=== PATIENT | female | born 1950 | race Caucasian/White ===

== ENCOUNTER 2017-09-25 20:14 | Inpatient (IN) | payer MEDICARE ==
[2017-09-25] MEDS ORDERED: Azithromycin 500 MG VIAL ONE ×2 (20:42→20:45)
[2017-09-25] MEDS ORDERED: cefTRIAXone\\ROCEPHIN 2 GM in Sodium Chloride 0.9% 100 ML IVPB SCH (20:45)
[2017-09-25 20:58] LABS: INR-International Normal Ratio 1.1; PTT 31.2 SEC (22.9-36.1); Prothrombin Time 13.8 SEC (12.0-14.7)
--- NOTE | 2017-09-25 21:05 | RAD ---
PORTABLE AP CHEST X-RAY 09/25/17 HISTORY: Diminished breath sounds on the left on physical exam. COMPARISON: 10/20/15. FINDINGS: The patient is rotated to the left which accentuates the hilar structures as well as the cardiac silh ouette. Lungs are clear. Pulmonary vasculature is within normal limits. Given differences in patient rotation, chest is stable from prior exam. IMPRESSION: Stable chest without evidence of an acute cardiopulmonary process. POS: DAMON
[2017-09-25 21:12] LABS: ALT (SGPT) 54 U/L (8-55); AST (SGOT) 44 U/L (5-34); Albumin 3.9 g/dL (3.4-4.8); Alkaline Phosphatase 152 U/L (40-150); Anion Gap 13 mmol/L (10-20); BUN (Urea Nitrogen) 16 mg/dL (9.8-20.1); Bilirubin, Total 0.7 mg/dL (0.2-1.2); Calc. Creatinine Clearance 0 mL/min (70-130); Calcium 9.4 mg/dL (7.8-10.44); Carbon Dioxide 31 mmol/L (23-31); Chloride 98 mmol/L (98-107); Estimated GFR-MDRD 42; Glucose 185 mg/dL (80-115); Potassium 4.7 mmol/L (3.5-5.1); Protein, Total 8.9 g/dL (6.0-8.3); Sodium 137 mmol/L (136-145)
[2017-09-25 21:17] LABS: CKMB 5.1 ng/mL (0-6.6); Troponin I Less than 0.010 ng/mL (< 0.028)
[2017-09-25 21:22] LABS: Band 10 % (5-11); Lymphocytes 14 % (21-51); MDiff Complete? YES; Mean Corpuscular HGB CONC 31.4 g/dL (32.0-36.0); Mean Corpuscular Hemoglobin 28.6 pg (27.0-31.0); Mean Corpuscular Volume 90.8 fl (81.0-99.0); Mean Platelet Volume 8.2 fL (7.4-10.4); Metamyelocyte 1 % (0-0); Monocytes 6 % (0-10); Neutrophil 69 % (42-75); PLT Morphology Comment Appears Adequate; Platelet Count 369 thou/uL (130-400); RBC Distribution Width 14.2 % (11.5-14.5); RBC Morphology Normal; Red Blood Cell (RBC) Count 4.57 mill/uL (4.20-5.40); White Blood Cell (WBC) Count 18.7 thou/uL (4.8-10.8)
[2017-09-25 22:03] LABS: Bilirubin Negative (Negative); Blood, Urine Trace (Negative); Clarity CLOUDY (Clear); Glucose, Urine (Dipstick) Negative (Negative); Leukocyte Small (Negative); Nitrite Negative (Negative); Protein, Urine (Dipstick) 30 mg/dL (Neg-Trace); Specific Gravity, Urine 1.013 (1.002-1.036); pH, Urine 6.5 (5.0-9.0)
[2017-09-25 22:05] LABS: Bacteria/HPF 3+ HPF (None Seen); Hyaline Casts/LPF 0-3 HYALINE CAST LPF (0-3 Hyaline); Squamous Epithelial 0-3 HPF (0-3); WBC/HPF 21-50 HPF (0-3)
[2017-09-26] VITALS: BMI 35.0
[2017-09-26] MEDS: Sodium Chloride 0.9% 1,000 ML IV SCH ×2 (00:35→16:45)
[2017-09-26] MEDS ORDERED: Ondansetron ODT 4 MG TAB PO PRN (01:03)
[2017-09-26] MEDS ORDERED: Calcium Carbonate 500 MG ChewTAB PO PRN (01:03)
[2017-09-26] MEDS ORDERED: Ondansetron HCl/PF 4 MG/2 ML Vial IVP PRN (01:03)
[2017-09-26] MEDS ORDERED: Senokot 8.6 MG TAB PO PRN (01:03)
[2017-09-26] MEDS ORDERED: Acetaminophen 325 MG TAB PO PRN (01:03)
[2017-09-26] MEDS ORDERED: hydrALAZINE 20 MG/ML VIAL SLOW IVP PRN (01:06)
--- NOTE | 2017-09-26 01:11 | PDOC.EVN ---
Event Note - Event Note Event Note: Patient seen and examined on 09/25. Full code. DPOA - self/family
--- NOTE | 2017-09-26 01:33 | HP ---
DATE OF ADMISSION: 09/25/2017 The patient was seen and examined on 09/25/2017. CHIEF COMPLAINT: Shortness of breath. PRIMARY CARE DOCTOR: Dr. Matos. PRIMARY INVOICE CODER: Dr. Kaur. HISTORY OF PRESENT ILLNESS: Patient is a 66-year-old female with COPD presented to the emergency room with worsening shortness of breath of approximately one-week duration along with productive cough. The cough was productive of thick-whitish phlegm. The patient has oxygen and nebulizer at home, however, uses only on an as needed basis. She denies any sick contacts. No recent travel reported. Shortness of breath was worse on mild exertion. She denies any chest pain, palpitations, lightheadedness, dizziness. In the emergency room, initial vital signs showed temperature 99.6 with respirations 20, pulse rate 120, blood pressure 135/61 with O2 saturation 83% on room air. Her O2 saturation improved to 99% on 4 liter nasal cannula. She received ceftriaxone, azithromycin, DuoNebs with IV fluids in the emergency room. Her chest x-ray was negative for infiltrate. EKG showed sinus tachycardia without significant ST-T wave changes. PAST MEDICAL HISTORY: 1. COPD. 2. Chronic respiratory failure on home oxygen on an as needed basis. 3. Hypothyroidism. 4. Hyperlipidemia. 5. Hypertension. 6. Degenerative joint disease. PAST SURGICAL HISTORY: Reviewed with the patient and none. ALLERGIES: PENICILLIN. CURRENT HOME MEDICATIONS: Patient is on Symbicort, Spiriva, levothyroxine, albuterol inhaler. She is unable to recall the dosages and exact names of all of her medications. SOCIAL HISTORY: Patient currently lives at home. Denies any current use of smoking, alcohol, or drug use. She is a former smoker. FAMILY HISTORY: Mother with breast cancer. Diabetes runs in her family. Maternal grandfather with prostate cancer. Maternal grandmother with leukemia. REVIEW OF SYSTEMS: The following complete review of systems was negative, unless otherwise mentioned in the HPI or below: Constitutional: Weight loss or gain, ability to conduct usual activities. Skin: Rash, itching. Eyes: Double vision, pain. ENT/Mouth: Nose bleeding, neck stiffness, pain, tenderness. Cardiovascular: Palpitations, dyspnea on exertion, orthopnea. Respiratory: Shortness of breath, wheezing, cough, hemoptysis, fever or night sweats. Gastrointestinal: Poor appetite, abdominal pain, heartburn, nausea, vomiting, constipation, or diarrhea. Genitourinary: Urgency, frequency, dysuria, nocturia. Musculoskeletal: Pain, swelling. Neurologic/Psychiatric: Anxiety, depression. Allergy/Immunologic: Skin rash, bleeding tendency. PHYSICAL EXAMINATION: VITAL SIGNS: As discussed above. GENERAL: A 66-year-old female in mild respiratory distress. HEENT: Head, atraumatic, normocephalic. Sclerae are anicteric. Moist mucous membranes. No oral lesion. NECK: Supple, no JVD appreciated. No carotid bruit. LUNGS: Showed diffuse expiratory wheezing with scattered bibasilar rales. Lungs were symmetrical. No significant rhonchi noted. HEART: S1, S2 present. Regular rate and rhythm. No rubs or gallops. No heaves or pulsation. ABDOMEN: Soft, nontender, bowel sounds present. EXTREMITIES: No edema or calf tenderness. NEUROLOGIC: Grossly nonfocal, moves all four extremities. PSYCHIATRY: Alert, awake, oriented x3. SKIN: Warm and dry. LYMPH NODES: No palpable lymph nodes in the neck. PERIPHERAL VASCULAR: Radial pulses palpable bilaterally. MUSCULOSKELETAL: No joint swelling or tenderness. SKIN: Warm and dry. LYMPH NODES: No palpable lymph nodes in the neck. LABORATORY FINDINGS: CBC showed WBC 18.7 with hemoglobin 13, platelet count 369. PT, INR, PTT normal range. Chemistries showed sodium 137, potassium 4.7, BUN 16, creatinine 1.27. Baseline creatinine 0.73. Lactic acid was normal at 1.2. Troponins were normal. BNP 14.1. Influenza testing was negative. Chest x-ray and EKG by my review as discussed above. Blood cultures have been sent. IMPRESSION: 1. Acute hypoxic respiratory failure secondary to chronic obstructive pulmonary disease exacerbation. 2. Sepsis due to suspected pneumonia, questionable pneumococcal with UTI. 3. Chronic respiratory failure on p.r.n. home oxygen. 4. Obesity with a BMI at 35. 5. Mild acute kidney injury on chronic kidney disease, stage 2. 6. Hypertension. 7. Hyperlipidemia. 8. Former smoker. 9. Degenerative joint disease. 10. Hypothyroidism. PLAN: Patient will be monitored on the medical floor. We will continue nebulizer treatments every 4 hours and as needed. We will continue gentle IV hydration for the next 24 hours or so. We will add on urine cultures. Continue ceftriaxone and azithromycin. We will confirm other home medications and start accordingly. Continue Symbicort and Spiriva. IV steroids. Vital signs q.4 hourly. O2 supplementation. Patient will require 2-3 days for stabilization. MTDD
[2017-09-26 05:14] LABS: #Eosinphils 0.1 thou/uL (0.0-0.7); #Monocytes 0.2 thou/uL (0.11-0.59); #Neutrophils 14.9 thou/uL (1.40-6.50); %Eosinophils 0.4 % (0.0-10.0); %Monocytes 1.2 % (0.0-10.0); %Neutrophils 92.4 % (42.0-75.0); Mean Corpuscular Hemoglobin 28.7 pg (27.0-31.0); Mean Corpuscular Volume 92.8 fl (81.0-99.0); Mean Platelet Volume 6.5 fL (7.4-10.4); Platelet Count 316 thou/uL (130-400); Red Blood Cell (RBC) Count 4.17 mill/uL (4.20-5.40); White Blood Cell (WBC) Count 16.1 thou/uL (4.8-10.8)
[2017-09-26 05:30] LABS: ALT (SGPT) 50 U/L (8-55); AST (SGOT) 35 U/L (5-34); Albumin 3.5 g/dL (3.4-4.8); Alkaline Phosphatase 138 U/L (40-150); Anion Gap 8 mmol/L (10-20); BUN (Urea Nitrogen) 14 mg/dL (9.8-20.1); Bilirubin, Total 0.3 mg/dL (0.2-1.2); Calc. Creatinine Clearance 98 mL/min (70-130); Calcium 9.1 mg/dL (7.8-10.44); Carbon Dioxide 34 mmol/L (23-31); Chloride 102 mmol/L (98-107); Estimated GFR-MDRD 71; Globulin 4.2 g/dL (2.4-3.5); Glucose 201 mg/dL (80-115); Magnesium 2.3 mg/dL (1.6-2.6); Potassium 4.4 mmol/L (3.5-5.1); Protein, Total 7.7 g/dL (6.0-8.3); Sodium 140 mmol/L (136-145)
[2017-09-26] MEDS ORDERED: Levothyroxine Sodium 100 MCG TAB PO SCH (06:00)
[2017-09-26] MEDS ORDERED: Budesonide 0.5 MG/2 ML NEB INH SCH (06:30)
[2017-09-26] MEDS ORDERED: Spiriva 18 MCG CAP (Box of 5 Caps) INH SCH (07:00)
[2017-09-26] MEDS ORDERED: FLU VACC TS2017-18 (>65YR) 0.5 ML SYRINGE IM ONE (09:00)
[2017-09-26] MEDS ORDERED: guaiFENesin ER 600 MG TAB PO SCH (09:00)
[2017-09-26] MEDS ORDERED: Prevnar 13-Val Conj/PF 0.5 ML SYRINGE IM ONE (09:00)
[2017-09-26] MEDS ORDERED: Non-Formulary Item 1 EACH (Budesonide-Formoterol [Symbicort 160-4.5] 2 PUFF) INH SCH (09:00)
[2017-09-26] MEDS: guaiFENesin ER 600 MG TAB PO SCH ×2 (09:26→21:19)
[2017-09-26] MEDS: Famotidine 20 MG TAB PO SCH ×2 (09:26→21:20)
[2017-09-26] MEDS: Aspirin 81 mg Enteric Coated Tablet PO SCH (09:26)
[2017-09-26] MEDS: Docusate 100 MG CAP PO SCH ×2 (09:26→21:20)
[2017-09-26] MEDS: cefTRIAXone\\ROCEPHIN 1 GM in Syringe 10 ML SLOW IVP SCH (09:27)
--- NOTE | 2017-09-26 15:32 | PDOC.PN ---
- Subjective Encounter Start Date: 09/26/17 Encounter Start Time: 15:30 Subjective: feels much better. breathing still shallow and easily winded -: cough same - Objective Resuscitation Status: Resuscitation Status FULL:Full Resuscitation MAR Reviewed: Yes Vital Signs & Weight: Vital Signs (12 hours) Temp Pulse Resp BP Pulse Ox 09/26/17 15:08 92 24 H 09/26/17 12:00 98.6 F 110 H 22 H 132/63 94 L 09/26/17 10:59 92 28 H 09/26/17 08:04 98 09/26/17 08:00 100 20 98 09/26/17 07:30 98.0 F 110 H 20 132/91 H 94 L 09/26/17 04:00 98.2 F 116 H 16 135/61 91 L Weight Weight 204 lb I&O: 09/25/17 09/26/17 09/27/17 06:59 06:59 06:59 Intake Total 725 Balance 725 Result Diagrams: 09/26/17 04:45 09/26/17 04:45 Additional Labs: Microbiology 09/25/17 21:57 Nasal swab Influenza Types A,B Direct EIA - Final 09/25/17 21:50 Urine clean catch Urine Culture - Preliminary Escherichia coli 09/25/17 20:39 Venous blood - Left Arm Blood Culture - Preliminary Specimen has been received and culture in progress. No Growth to date. 09/25/17 20:37 Venous blood - Right Foot Blood Culture - Preliminary Specimen has been received and culture in progress. No Growth to date. Phys Exam - Physical Examination Constitutional: NAD HEENT: PERRLA, moist MMs, sclera anicteric, oral pharynx no lesions Neck: no nodes, no JVD, supple, full ROM Respiratory: no rales, no rhonchi, wheezing present, clear to auscultation bilateral Cardiovascular: RRR, no significant murmur, no rub, gallop Gastrointestinal: soft, non-tender, no distention, positive bowel sounds Musculoskeletal: no edema, pulses present Neurological: non-focal, normal sensation, moves all 4 limbs Psychiatric: normal affect, A&O x 3 Skin: no rash Dx/Plan (1) Acute hypoxemic respiratory failure Code(s): J96.01 - ACUTE RESPIRATORY FAILURE WITH HYPOXIA Status: Acute (2) Sepsis Code(s): A41.9 - SEPSIS, UNSPECIFIED ORGANISM Status: Acute (3) PNA (pneumonia) Code(s): J18.9 - PNEUMONIA, UNSPECIFIED ORGANISM Status: Acute (4) UTI (urinary tract infection) Status: Acute (5) Hypothyroid Code(s): E03.9 - HYPOTHYROIDISM, UNSPECIFIED Status: Acute (6) Chronic obstructive pulmonary disease (COPD) Status: Chronic - Plan continue antibiotics, respiratory therapy, incentive spirometry, out of bed/ ambulate, DVT proph w/SCDs cont IV steroids,nebsm empiric ABX -: follow Cx . -: HH ,OT,PT. -: WBC trending down .monitor. AM labs. -: renal Fx improved * . Review of Systems - Review of Systems Constitutional: negative: fever, chills, sweats, weakness, malaise, other ENT: negative: Ear Pain, Ear Discharge, Nose Pain, Nose Discharge, Nose Congestion, Mouth Pain, Mouth Swelling, Throat Pain, Throat Swelling, Other Respiratory: negative: Cough, Dry, Shortness of Breath, Hemoptysis, SOB with Excertion, Pleuritic Pain, Sputum, Wheezing Cardiovascular: negative: chest pain, palpitations, orthopnea, paroxysmal nocturnal dyspnea, edema, light headedness, other Gastrointestinal: negative: Nausea, Vomiting, Abdominal Pain, Diarrhea, Constipation, Melena, Hematochezia, Other Genitourinary: negative: Dysuria, Frequency, Incontinence, Hematuria, Retention , Other Musculoskeletal: negative: Neck Pain, Shoulder Pain, Arm Pain, Back Pain, Hand Pain, Leg Pain, Foot Pain, Other Neurological: negative: Weakness, Numbness, Incoordination, Change in Speech, Confusion, Seizures, Other - Medications/Allergies Allergies/Adverse Reactions: Allergies Allergy/AdvReac Type Severity Reaction Status Date / Time Penicillins Allergy Verified 09/26/17 00:37 Medications: Current Medications Acetaminophen (Tylenol) 650 mg PO Q4H PRN PRN Reason: Headache/Fever or Pain Albuterol/Ipratropium (Duoneb) 3 ml NEB Q2H PRN PRN Reason: SOB &/or Wheezing Albuterol/Ipratropium (Duoneb) 3 ml NEB [id number] [facility] Last Admin: 09/26/17 15:08 Dose: 3 ml Aspirin (Ecotrin) 81 mg PO QAM [facility] Last Admin: 09/26/17 09:26 Dose: 81 mg Atorvastatin Calcium (Lipitor) 10 mg PO HS [facility] Calcium Carbonate (Tums) 1,000 mg PO Q4H PRN PRN Reason: Heartburn or Indigestion Docusate Sodium (Colace) 100 mg PO BID [facility] Last Admin: 09/26/17 09:26 Dose: 100 mg Enoxaparin Sodium (Lovenox) 40 mg SC 2100 [facility] Famotidine (Pepcid) 20 mg PO BID [facility] Last Admin: 09/26/17 09:26 Dose: 20 mg Guaifenesin (Mucinex) 600 mg PO Q12HR [facility] Last Admin: 09/26/17 09:26 Dose: 600 mg Hydralazine HCl (Apresoline) 10 mg SLOW IVP Q4H PRN PRN Reason: SBP Greater Than 180 Sodium Chloride (Normal Saline 0.9%) 1,000 mls @ 50 mls/hr IV .Q20H [facility] Stop: 09/26/17 20:31 Last Admin: 09/26/17 00:35 Dose: 1,000 mls Ceftriaxone Sodium 1 gm/ (Syringe) 10 mls @ 120 mls/hr SLOW IVP DAILY [facility] Last Admin: 09/26/17 09:27 Dose: 10 mls Levothyroxine Sodium (Synthroid) 100 mcg PO QPM [facility] Methylprednisolone Sodium Succinate (Solu-Medrol) 40 mg IVP 0200,1000,1800 [facility] Last Admin: 09/26/17 11:30 Dose: 40 mg Mometasone Furoate/Formoterol Fumar (Dulera 200 Mcg/5 Mcg Inhaler) 2 puff INH BID-RT [facility] Ondansetron HCl (Zofran Odt) 4 mg PO Q6H PRN PRN Reason: Nausea/Vomiting Ondansetron HCl (Zofran) 4 mg IVP Q6H PRN PRN Reason: Nausea/Vomiting Senna (Senokot) 2 tab PO HSPRN PRN PRN Reason: Constipation
[2017-09-26] MEDS ORDERED: traMADol HCl 50 MG TAB PO PRN (18:06)
[2017-09-26] MEDS: Mometasone/Formoterol 120 PUFF INHALER INH SCH (19:15)
[2017-09-26] MEDS ORDERED: Enoxaparin Sodium 40 MG/0.4 ML SYRINGE SC SCH (21:00)
[2017-09-26] MEDS: Levothyroxine Sodium 100 MCG TAB PO SCH (21:20)
[2017-09-26] MEDS: Atorvastatin Calcium 10 MG TAB PO SCH (21:20)
[2017-09-26] MEDS: traMADol HCl 50 MG TAB PO PRN (21:22)
[2017-09-27] MEDS: traMADol HCl 50 MG TAB PO PRN (05:46)
[2017-09-27] MEDS: Mometasone/Formoterol 120 PUFF INHALER INH SCH ×2 (06:05→19:14)
[2017-09-27] MEDS: Docusate 100 MG CAP PO SCH ×2 (08:26→21:09)
[2017-09-27] MEDS: guaiFENesin ER 600 MG TAB PO SCH ×2 (08:27→21:06)
[2017-09-27] MEDS: Famotidine 20 MG TAB PO SCH ×2 (08:27→21:07)
[2017-09-27] MEDS: Aspirin 81 mg Enteric Coated Tablet PO SCH (08:27)
[2017-09-27] MEDS: cefTRIAXone\\ROCEPHIN 1 GM in Syringe 10 ML SLOW IVP SCH (09:26)
--- NOTE | 2017-09-27 17:36 | PDOC.PN ---
- Subjective Encounter Start Date: 09/27/17 Encounter Start Time: 14:00 Patient seen and examined. Dry cough +, Wheezing + No overnight events. - Objective Resuscitation Status: Resuscitation Status FULL:Full Resuscitation MAR Reviewed: Yes Vital Signs & Weight: Vital Signs (12 hours) Temp Pulse Resp BP BP Pulse Ox 09/27/17 16:00 98.0 F 100 18 140/80 94 L 09/27/17 12:00 98.2 F 106 H 18 141/68 H 93 L 09/27/17 09:51 89 20 94 L 09/27/17 08:00 98.2 F 89 20 93 L 09/27/17 07:25 98.2 F 106 H 18 141/68 H 93 L 09/27/17 06:02 103 H 24 H 94 L Weight Weight 204 lb I&O: 09/26/17 09/27/17 09/28/17 06:59 06:59 06:59 Intake Total 725 Output Total 600 Balance 725 -600 Result Diagrams: 09/26/17 04:45 09/26/17 04:45 Phys Exam - Physical Examination Constitutional: NAD Respiratory: no rales, wheezing present Cardiovascular: RRR, no rub Gastrointestinal: soft, non-tender, positive bowel sounds Musculoskeletal: no edema Neurological: moves all 4 limbs Dx/Plan - Plan DVT proph w/lovenox, DVT proph w/SCDs IMPRESSION: 1. Acute hypoxic respiratory failure secondary to chronic obstructive pulmonary disease exacerbation. slowly improving 2. Sepsis due to suspected pneumonia, questionable pneumococcal with E. coli UTI. 3. Chronic respiratory failure on p.r.n. home oxygen. 4. Obesity with a BMI at 35. 5. Mild acute kidney injury on chronic kidney disease, stage 2 - improving 6. Hypertension. 7. Hyperlipidemia. 8. Former smoker. 9. Degenerative joint disease. 10. Hypothyroidism. PLAN: * Cont Atbx/Nebs/Steroids * Consult Dr Kaur in AM * Cont current meds as below * Cont Mucinex * Add Doxycycline * Cont to monitor Review of Systems - Review of Systems Constitutional: negative: fever, chills, sweats, weakness, malaise Cardiovascular: negative: chest pain, palpitations, orthopnea, paroxysmal nocturnal dyspnea, edema, light headedness Gastrointestinal: negative: Nausea, Vomiting, Abdominal Pain, Diarrhea, Constipation, Melena, Hematochezia - Medications/Allergies Allergies/Adverse Reactions: Allergies Allergy/AdvReac Type Severity Reaction Status Date / Time Penicillins Allergy Verified 09/26/17 00:37 Medications: Current Medications Acetaminophen (Tylenol) 650 mg PO Q4H PRN PRN Reason: Headache/Fever or Pain Last Admin: 09/26/17 16:43 Dose: 650 mg Albuterol/Ipratropium (Duoneb) 3 ml NEB Q2H PRN PRN Reason: SOB &/or Wheezing Albuterol/Ipratropium (Duoneb) 3 ml NEB [id number] [facility] Last Admin: 09/27/17 14:47 Dose: 3 ml Aspirin (Ecotrin) 81 mg PO QAM [facility] Last Admin: 09/27/17 08:27 Dose: 81 mg Atorvastatin Calcium (Lipitor) 10 mg PO HS [facility] Last Admin: 09/26/17 21:20 Dose: 10 mg Calcium Carbonate (Tums) 1,000 mg PO Q4H PRN PRN Reason: Heartburn or Indigestion Docusate Sodium (Colace) 100 mg PO BID [facility] Last Admin: 09/27/17 08:26 Dose: 100 mg Famotidine (Pepcid) 20 mg PO BID [facility] Last Admin: 09/27/17 08:27 Dose: 20 mg Guaifenesin (Mucinex) 600 mg PO Q12HR [facility] Last Admin: 09/27/17 08:27 Dose: 600 mg Hydralazine HCl (Apresoline) 10 mg SLOW IVP Q4H PRN PRN Reason: SBP Greater Than 180 Ceftriaxone Sodium 1 gm/ (Syringe) 10 mls @ 120 mls/hr SLOW IVP DAILY [facility] Last Admin: 09/27/17 09:26 Dose: 10 mls Levothyroxine Sodium (Synthroid) 100 mcg PO QPM [facility] Last Admin: 09/26/17 21:20 Dose: 100 mcg Methylprednisolone Sodium Succinate (Solu-Medrol) 40 mg IVP 0200,1000,1800 [facility] Last Admin: 09/27/17 17:24 Dose: 40 mg Mometasone Furoate/Formoterol Fumar (Dulera 200 Mcg/5 Mcg Inhaler) 2 puff INH BID-RT [facility] Last Admin: 09/27/17 06:05 Dose: 2 puff Ondansetron HCl (Zofran Odt) 4 mg PO Q6H PRN PRN Reason: Nausea/Vomiting Ondansetron HCl (Zofran) 4 mg IVP Q6H PRN PRN Reason: Nausea/Vomiting Senna (Senokot) 2 tab PO HSPRN PRN PRN Reason: Constipation Tramadol HCl (Ultram) 50 mg PO Q6H PRN PRN Reason: Moderate Pain (4-6) Tramadol HCl (Ultram) 100 mg PO Q6H PRN PRN Reason: Severe Pain (7-10) Last Admin: 09/27/17 05:46 Dose: 100 mg
[2017-09-27] MEDS: Doxycycline 100 MG CAP PO SCH (21:05)
[2017-09-27] MEDS: Levothyroxine Sodium 100 MCG TAB PO SCH (21:07)
[2017-09-27] MEDS: Atorvastatin Calcium 10 MG TAB PO SCH (21:07)
[2017-09-28] MEDS: traMADol HCl 50 MG TAB PO PRN ×2 (04:35→18:19)
[2017-09-28] MEDS: Mometasone/Formoterol 120 PUFF INHALER INH SCH (06:36)
[2017-09-28] MEDS: Aspirin 81 mg Enteric Coated Tablet PO SCH (08:12)
[2017-09-28] MEDS: Docusate 100 MG CAP PO SCH ×2 (08:13→21:15)
[2017-09-28] MEDS: Famotidine 20 MG TAB PO SCH (08:13)
[2017-09-28] MEDS: guaiFENesin ER 600 MG TAB PO SCH ×2 (08:13→21:14)
[2017-09-28] MEDS: Doxycycline 100 MG CAP PO SCH ×2 (08:15→21:14)
[2017-09-28] MEDS: cefTRIAXone\\ROCEPHIN 1 GM in Syringe 10 ML SLOW IVP SCH (08:16)
[2017-09-28] MEDS ORDERED: Furosemide 20 MG/2 ML VIAL SLOW IVP SCH (13:30)
--- NOTE | 2017-09-28 13:46 | CON ---
DATE OF CONSULTATION: 09/28/2017 SERVICE: Pulmonary Medicine. REASON FOR CONSULTATION: COPD exacerbation. HISTORY OF PRESENT ILLNESS: The patient is a 66-year-old white female with past medical history sign ificant for moderately severe COPD based on PFTs that were done roughly a year ago. She denies any c urrent fevers, chills, nausea or vomiting. She presented to the hospital with a 1-week history of in creasing dyspnea on exertion, cough productive of increasingly green sputum, and dyspnea with exertio n. Ultimately, she was diagnosed as having COPD exacerbation. She put on antibiotics and nebulizer medications since Thursday. Today, she feels much improved. She started to liberate some of that sput um, but has a hard time clearing it sometimes. Otherwise, she is returning to her usual state of hea lt. She is looking forward to getting out of here, but think she is still 24 hours away from that. PAST MEDICAL HISTORY: 1. COPD, moderately severe. 2. Hypertension. 3. Dyslipidemia. 4. Chronic hypoxic respiratory failure. 5. Hypothyroidism. 6. Osteoarthritis. PAST SURGICAL HISTORY: None. ALLERGIES: PENICILLIN. MEDICATIONS: List of her inpatient medications were reviewed. Multiple updates were made. SOCIAL HISTORY: Negative for alcohol, tobacco or illicit drug use. She is a former smoker and has a greater than [id number] history of smoking. She has no exposure to chemicals, dust asbestos or tu berculosis. FAMILY HISTORY: Noncontributory. REVIEW OF SYSTEMS: General, head, ears, eyes, nose, throat, cardiovascular, respiratory, GI, , mus culoskeletal, neurologic and skin is negative except as mentioned in the HPI. PHYSICAL EXAMINATION: VITAL SIGNS: Afebrile, pulse 93, blood pressure 153/79, respirations 20, saturation 94% on 2 liters nasal cannula. GENERAL: The patient is awake and alert, in no apparent distress. LUNGS: Excellent air entry. There is a prolonged expiratory phase. Polyphonic wheezing is present. There is rhonchi and crackles also evident. HEART: Normal rate, regular. ABDOMEN: Soft, nontender, nondistended. Bowel sounds are positive. MUSCULOSKELETAL: No cyanosis or clubbing. There is 1+ pitting in the bilateral lower extremities. NEUROLOGIC: Grossly nonfocal. LABORATORY DATA: WBC 16.1, hemoglobin 12.0, platelets 316,000. INR is 1.1. Cardiac enzymes and BNP are unremarkable. Liver function studies are also unremarkable/down trending. Creatinine is 0.[address] a nd back into the normal limits. Basic metabolic profile is otherwise unremarkable. Urinalysis is po sitive for 21 to 50 white blood cells, very small amount of red blood cells, positive leukocyte chadwick ase, and negative nitrites. Cultures are positive for E. coli in the urine. Blood cultures x2 and i nfluenza are unremarkable. IMAGING: Chest x-ray demonstrates a little bit rotation on this film, but there is no acute cardiopu lmonary abnormality identified. ASSESSMENT: 1. Acute on chronic hypoxic respiratory failure. 2. Chronic obstructive pulmonary disease with acute exacerbation. 3. Obstructive sleep apnea, suspected. PLAN: I will deescalate her antibiotics and steroids over to p.o. medications. From my perspective, she is stable for transition out of the hospital today or tomorrow. When she is discharged, she cale l need to resume her home inhalers. We will consider getting her on Trelegy Ellipta in the outpatien t setting to consolidate some of her medications. Pulmonary will continue to follow while she remain s in-house. I will give her dose of Lasix today and tomorrow morning. IV fluids will be interrupted . We will schedule her Mucinex and get rid of any cough suppressant.
--- NOTE | 2017-09-28 15:36 | PDOC.PN ---
- Subjective Encounter Start Date: 09/28/17 Encounter Start Time: 09:30 Patient seen and examined. Lightheaded charla on standing. Feels gen weak. No overnight events - Objective Resuscitation Status: Resuscitation Status FULL:Full Resuscitation MAR Reviewed: Yes Vital Signs & Weight: Vital Signs (12 hours) Temp Pulse Resp BP BP Pulse Ox 09/28/17 14:18 89 18 94 L 09/28/17 12:00 97.5 F L 93 20 153/79 H 94 L 09/28/17 10:18 91 18 93 L 09/28/17 08:15 97.6 F 105 H 18 157/73 H 93 L 09/28/17 08:00 97.6 F 105 H 18 93 L 09/28/17 06:35 99 18 94 L 09/28/17 04:15 93 L Weight Weight 204 lb I&O: 09/27/17 09/28/17 09/29/17 06:59 06:59 06:59 Intake Total 1650 Output Total 600 Balance -600 1650 Result Diagrams: 09/26/17 04:45 09/26/17 04:45 Phys Exam - Physical Examination Constitutional: NAD Respiratory: no rales, wheezing present Cardiovascular: RRR, no rub Gastrointestinal: soft, non-tender, positive bowel sounds Musculoskeletal: no edema Neurological: moves all 4 limbs Psychiatric: A&O x 3 Dx/Plan - Plan DVT proph w/SCDs IMPRESSION: 1. Acute hypoxic respiratory failure secondary to chronic obstructive pulmonary disease exacerbation. slowly improving 2. Sepsis due to suspected pneumonia, questionable pneumococcal with E. coli UTI. 3. Chronic respiratory failure on p.r.n. home oxygen. 4. Obesity with a BMI at 35. 5. Mild acute kidney injury on chronic kidney disease, stage 2 - improving 6. Hypertension. 7. Hyperlipidemia. 8. Former smoker. 9. Degenerative joint disease. 10. Hypothyroidism. PLAN: * Appreciated Pulm input * Cont Atbx/Nebs/Steroids/Mucinex * Cont current meds as below * Cont Doxycycline * Cont to monitor * DC in 24 hr if stable * Check Orthostatic vitals Review of Systems - Review of Systems Respiratory: negative: Cough, Dry, Shortness of Breath, Hemoptysis, SOB with Excertion, Pleuritic Pain, Sputum, Wheezing Cardiovascular: negative: chest pain, palpitations, orthopnea, paroxysmal nocturnal dyspnea, edema, light headedness - Medications/Allergies Allergies/Adverse Reactions: Allergies Allergy/AdvReac Type Severity Reaction Status Date / Time Penicillins Allergy Verified 09/26/17 00:37 Medications: Current Medications Acetaminophen (Tylenol) 650 mg PO Q4H PRN PRN Reason: Headache/Fever or Pain Last Admin: 09/26/17 16:43 Dose: 650 mg Albuterol/Ipratropium (Duoneb) 3 ml NEB Q2H PRN PRN Reason: SOB &/or Wheezing Albuterol/Ipratropium (Duoneb) 3 ml NEB [id number] [facility] Last Admin: 09/28/17 14:18 Dose: 3 ml Aspirin (Ecotrin) 81 mg PO QAM [facility] Last Admin: 09/28/17 08:12 Dose: 81 mg Atorvastatin Calcium (Lipitor) 10 mg PO HS [facility] Last Admin: 09/27/17 21:07 Dose: 10 mg Calcium Carbonate (Tums) 1,000 mg PO Q4H PRN PRN Reason: Heartburn or Indigestion Cefdinir (Omnicef) 300 mg PO BID [facility] Stop: 10/01/17 21:01 Docusate Sodium (Colace) 100 mg PO BID [facility] Last Admin: 09/28/17 08:13 Dose: 100 mg Doxycycline Hyclate (Vibramycin) 100 mg PO BID [facility] Last Admin: 09/28/17 08:15 Dose: 100 mg Furosemide (Lasix) 20 mg SLOW IVP NOW [facility] Stop: 09/28/17 16:00 Last Admin: 09/28/17 13:47 Dose: 20 mg Furosemide (Lasix) 40 mg PO DAILY-AC [facility] Stop: 09/29/17 07:31 Guaifenesin (Mucinex) 600 mg PO Q12HR [facility] Last Admin: 09/28/17 08:13 Dose: 600 mg Hydralazine HCl (Apresoline) 10 mg SLOW IVP Q4H PRN PRN Reason: SBP Greater Than 180 Levothyroxine Sodium (Synthroid) 100 mcg PO QPM [facility] Last Admin: 09/27/17 21:07 Dose: 100 mcg Ondansetron HCl (Zofran Odt) 4 mg PO Q6H PRN PRN Reason: Nausea/Vomiting Ondansetron HCl (Zofran) 4 mg IVP Q6H PRN PRN Reason: Nausea/Vomiting Prednisone (Prednisone) 40 mg PO QAM-[facility] Stop: 10/03/17 08:01 Senna (Senokot) 2 tab PO HSPRN PRN PRN Reason: Constipation Tramadol HCl (Ultram) 50 mg PO Q6H PRN PRN Reason: Moderate Pain (4-6) Tramadol HCl (Ultram) 100 mg PO Q6H PRN PRN Reason: Severe Pain (7-10) Last Admin: 09/28/17 04:35 Dose: 100 mg
[2017-09-28] MEDS: Levothyroxine Sodium 100 MCG TAB PO SCH (21:14)
[2017-09-28] MEDS: Atorvastatin Calcium 10 MG TAB PO SCH (21:15)
[2017-09-28] MEDS: Cefdinir 300 MG CAP PO SCH (21:15)
[2017-09-29] MEDS: traMADol HCl 50 MG TAB PO PRN ×3 (00:08→13:31)
[2017-09-29] MEDS ORDERED: Furosemide 40 MG TAB PO SCH (07:30)
[2017-09-29] MEDS ORDERED: predniSONE 20 MG TAB PO SCH (08:00)
[2017-09-29] MEDS: Cefdinir 300 MG CAP PO SCH (09:37)
[2017-09-29] MEDS: guaiFENesin ER 600 MG TAB PO SCH (09:37)
[2017-09-29] MEDS: Doxycycline 100 MG CAP PO SCH (09:37)
[2017-09-29] MEDS: Aspirin 81 mg Enteric Coated Tablet PO SCH (09:38)
[2017-09-29] MEDS: Docusate 100 MG CAP PO SCH (11:23)
[2017-09-29 13:21] VITALS: BP 118/64; TEMP 97.4
--- NOTE | 2017-09-29 19:12 | DIS ---
DATE OF DISCHARGE: 09/29/2017 DISCHARGE DISPOSITION: [facility]. ALLERGIES: The patient is allergic to PENICILLIN. The patient was seen and examined on the day of discharge. Denies any new complaints. Shortness of breath and wheezing has improved. DISCHARGE MEDICATIONS: 1. Omnicef 300 mg twice a day for 5 days. 2. Doxycycline 100 mg twice a day for next 5 days. 3. Prednisone taper. 4. Nebulizer treatment. 5. Other home medications were resumed. SIGNIFICANT LABORATORY DATA: 1. WBC on admission 18.7 with hemoglobin 13.0 2. Creatinine on admission 1.27, next day was 0.81. 3. Urinalysis showed 21-50 wbc's with 3+ bacteria. 4. Urine culture showed E. coli sensitive to cephalosporins. 5. Blood cultures were negative. 6. Influenza testing was negative. INPATIENT CONSULTANTS: Dr. Vincent Espinosa. BRIEF HOSPITAL COURSE: The patient is a 66-year-old female with COPD, on home oxygen on an as needed basis, presented to the hospital with shortness of breath. Please refer to the history and physical dated 09/25/2017 for further details. The patient was admitted to the hospital with a diagnosis of acute hypoxic respiratory failure second eric to chronic obstructive pulmonary disease exacerbation with suspected pneumonia. She showed good improvement with oxygen, nebulizer treatment, antibiotics, and steroids. She was also found to have E. coli urinary tract infection. She was seen by Pulmonary, Dr. Kaur. [facility] She will be discharged to [facility]. DISCHARGE DIAGNOSES: 1. Acute hypoxic respiratory failure secondary to chronic obstructive pulmonary disease exacerbation . 2. Sepsis secondary to pneumonia, questionable pneumococcal. 3. Urinary tract infection secondary to Escherichia coli. 4. Chronic respiratory failure, on home oxygen. 5. Obesity with a BMI at 35. 6. Mild acute kidney injury on chronic kidney disease stage 2, improved. 7. Hypertension. 8. Hyperlipidemia. 9. Former smoker. 10. Degenerative joint disease. 11. Hypothyroidism. Plan of care was discussed with the patient in detail. She stated understanding. Total time coordinating the discharge of this patient was 35 minutes.
== END 2017-09-29 16:09 | DRG 871 ==
LOC: ERS 20:14 → ONC 23:24
PROVIDERS: ADMIT Internal Medicine; ATTEND Internal Medicine
DX: A41.9 Sepsis, unspecified organism (principal); J96.01 Acute respiratory failure with hypoxia; J18.9 Pneumonia, unspecified organism; J44.0 Chronic obstructive pulmonary disease with (acute) lower respiratory infection; J44.1 Chronic obstructive pulmonary disease with (acute) exacerbation; N39.0 Urinary tract infection, site not specified; B96.20 Unspecified Escherichia coli [E. coli] as the cause of diseases classified elsewhere; Z99.81 Dependence on supplemental oxygen; E66.9 Obesity, unspecified; Z68.35 Body mass index [BMI] 35.0-35.9, adult; I10 Essential (primary) hypertension; E78.5 Hyperlipidemia, unspecified; M19.90 Unspecified osteoarthritis, unspecified site; E03.9 Hypothyroidism, unspecified; G47.33 Obstructive sleep apnea (adult) (pediatric)
CPT/HCPCS: 36415; 71045; 80053; 81003; 81015; 82553; 83605; 83735; 83880; 84484; 85025; 85610; 85730; 87040; 87077; 87086; 87186; 87804; 90471; 90682; 93005; 94640; 94664; 96365; G0008; G8978-GP-CJ; G8979-GP-CJ; G8980-GP-CJ; J0456; J0696; J1650; J1940; J2920; J7050; J7506; J7620; Q2036

== ENCOUNTER 2017-10-23 18:14 | Inpatient (IN) | payer MEDICARE ==
[2017-10-23 19:03] LABS: Actual Bicarbonate (HCO3a) 33.5 mEq/L (22-26); Base Excess (BEa) 5.5 mEq/L (0 (+/-) 2.5); CO2 Tension 67.8 mmHg (35.0-45.0); Hematocrit-ABG 39.8 % (36.0-47.0); Hemoglobin (Hb) 11.7 g/dL (12.0-16.0); O2 Tension (PaO2) 103.7 mmHg (80.0-100.0); pH, Arterial 7.31 (7.35-7.45)
[2017-10-23 19:04] LABS: Analyzer IN Cardio ER; Calcium, Ionized 1.1 mmol/L (1.12-1.30); Puncture Site RRA
[2017-10-23 19:25] LABS: Troponin I 0.014 ng/mL (< 0.028)
[2017-10-23] MEDS ORDERED: Acetaminophen 325 MG TAB PO PRN (19:52)
[2017-10-23] MEDS ORDERED: Ondansetron HCl/PF 4 MG/2 ML Vial IVP PRN (19:52)
[2017-10-23] MEDS ORDERED: Ondansetron ODT 4 MG TAB SL PRN (19:52)
[2017-10-23] MEDS ORDERED: Acetaminophen 650 MG Suppository PR PRN (21:44)
[2017-10-23] MEDS ORDERED: Bisacodyl 5 MG TAB PO PRN (21:44)
--- NOTE | 2017-10-23 22:42 | HP ---
PRIMARY CARE PROVIDER: Dr. Nataly Matos. CHIEF COMPLAINT: Shortness of breath. HISTORY OF PRESENT ILLNESS: Ms. Simon is a pleasant 67-year-old lady, who was seen at [facility] on 10/23/2017, following transfer from the emergency room at [facility]. She was hospitalized at [facility] from 09/26/2017 to 09/29/2017 of this year for acute on chronic hypoxic respiratory failure secondary to chronic obstructive pulmonary disease e xacerbation. She reports that she was doing well until 3 days ago. She uses home oxygen on an as needed basis. T hree days ago, she developed cough and shortness of breath. Cough is productive of minimal amount of sputum. Shortness of breath is worse with exertion. She denies orthopnea or paroxysmal nocturnal d yspnea. She denies any fevers or chest pain. She denies any nausea or vomiting. She denies any abd ominal pain. She went to the emergency room at [facility]. There, she was found to have oxygen saturation of 68% on room air. She also had a temperature of 100.8 degrees Fahrenheit. She was treated with steroids, L evaquin, oxygen, and DuoNebs, and transferred to the emergency room at [facility]. She also reports wheezing with shortness of breath. REVIEW OF SYSTEMS: The following complete review of systems was negative, unless otherwise mentioned in the HPI or below: Constitutional: Weight loss or gain, ability to conduct usual activities. Skin: Rash, itching. Eyes: Double vision, pain. ENT/Mouth: Nose bleeding, neck stiffness, pain, tenderness. Cardiovascular: Palpitations, dyspnea on exertion, orthopnea. Respiratory: Shortness of breath, wheezing, cough, hemoptysis, fever or night sweats. Gastrointestinal: Poor appetite, abdominal pain, heartburn, nausea, vomiting, constipation, or diarrh ea. Genitourinary: Urgency, frequency, dysuria, nocturia. Musculoskeletal: Pain, swelling. Neurologic/Psychiatric: Anxiety, depression. Allergy/Immunologic: Skin rash, bleeding tendency. PAST MEDICAL HISTORY: Significant for COPD, chronic respiratory failure on home oxygen on an as need ed basis, hypothyroidism, dyslipidemia, hypertension, and degenerative joint disease. PAST SURGICAL HISTORY: None. ALLERGIES: PENICILLIN. HOME MEDICATIONS: Ventolin HFA p.r.n., aspirin 81 mg daily, Symbicort 2 puffs 2 times a day, levothy roxine 100 mcg daily, pravastatin 40 mg daily, and Spiriva 2 puffs daily. SOCIAL HISTORY: She denies tobacco use, alcohol use, or recreational drug use. FAMILY HISTORY: Mother with breast cancer, several family members with diabetes mellitus, maternal g randfather with prostate cancer, and maternal grandmother with leukemia. CODE STATUS: I discussed her code status. She is FULL CODE. Substitute decision maker is her nakul ter-in-law. PHYSICAL EXAMINATION: GENERAL: Ms. Simon is awake and alert, not in acute distress. She is currently on a BiPAP christina e. VITAL SIGNS: Blood pressure is 115/61, pulse is 107. She is breathing at rate of 23 and saturating 99% on BiPAP. She is afebrile. EYES: No scleral icterus. No conjunctival pallor. ENT: Moist mucosal membranes, no oropharyngeal erythema or exudates. NECK: Supple, nontender, normal range of movement. Trachea is midline. RESPIRATORY: Accessory muscles of breathing are active. Chest wall movements are symmetric bilatera lly. She has diffuse expiratory wheezes over all lung zones. CARDIOVASCULAR: S1 and S2 are heard, tachycardic, and regular. LUNGS: Peripheral pulses palpable. No carotid bruit, no pericardial rub. ABDOMEN: Soft, nontender, bowel sounds are heard, no hepatomegaly, no splenomegaly. NEUROLOGIC: Cranial nerves II-XII intact. Deep tendon reflexes are 2+. MUSCULOSKELETAL: Power is 5/5 in all 4 extremities. SKIN: She has a wound over the left leg. She also has bilateral lower extremity edema. LYMPHATIC: No cervical lymphadenopathy. PSYCHIATRIC: Normal mood, normal affect, patient is oriented to person, place, and time. LABORATORY DATA: Ms. Simon's labs and investigations were reviewed. I reviewed her electrocardio gram, which shows sinus tachycardia, no ST changes to suggest an acute coronary syndrome. I also rev iewed her chest x-ray, which does not show any pulmonary infiltrates. She has normal white count, no rmal hemoglobin, normal platelet count, normal sodium, normal potassium, normal creatinine, mildly el evated AST of 35, otherwise unremarkable liver profile and arterial blood gases showing pH of 7.31, p CO2 of 67.8, and pO2 of 103.7. ASSESSMENT AND PLAN: Ms. Simon is a pleasant 67-year-old lady, who was seen at [facility] on 10/23/2017. Her problem list includes: 1. Acute on chronic respiratory failure: Hypercapnic: The patient is currently in the IMCU on BiPA P therapy. I will admit her to IMCU and continue her on oxygen, steroids, bronchodilators, and antib iotics. Pulmonology Service will be consulted for opinion and help with management. Respiratory medardo lure is most likely secondary to chronic obstructive pulmonary disease exacerbation. 2. Hypothyroidism: Appears to be stable. Resume home dose of Synthroid. 3. Dyslipidemia: Continue statin. 4. Hypertension: Monitor vital signs, titrate antihypertensives as needed. Many thanks for allowing me to participate in your patient's care. Please feel free to contact me wi th any questions or concerns. LEVEL OF RISK: LEVEL OF RISK: High. LEVEL OF COMPLEXITY: High.
[2017-10-23 23:03] LABS: Troponin I Less than 0.010 ng/mL (< 0.028)
[2017-10-24 00:12] VITALS: BMI 35.9
[2017-10-24 04:46] LABS: Anion Gap 12 mmol/L (10-20); BUN (Urea Nitrogen) 11 mg/dL (9.8-20.1); Calc. Creatinine Clearance 122 mL/min (70-130); Calcium 8.9 mg/dL (7.8-10.44); Carbon Dioxide 31 mmol/L (23-31); Chloride 100 mmol/L (98-107); Estimated GFR-MDRD 89; Glucose 150 mg/dL (80-115); Potassium 5.3 mmol/L (3.5-5.1); Sodium 138 mmol/L (136-145)
[2017-10-24 05:01] LABS: Band 5 % (5-11); Hemoglobin 12.4 g/dL (12.0-16.0); Hypochromia SLIGHT = 6-15 cells (100X) (0-5/hpf); Lymphocytes 14 % (21-51); MDiff Complete? YES; Mean Corpuscular HGB CONC 31.6 g/dL (32.0-36.0); Mean Corpuscular Hemoglobin 29.1 pg (27.0-31.0); Mean Platelet Volume 6.7 fL (7.4-10.4); Metamyelocyte 1 % (0-0); Monocytes 2 % (0-10); Neutrophil 78 % (42-75); Nucleated RBC 1 % (0); PLT Morphology Comment Appears Adequate; Platelet Count 201 thou/uL (130-400); RBC Distribution Width 14.6 % (11.5-14.5); Red Blood Cell (RBC) Count 4.26 mill/uL (4.20-5.40); White Blood Cell (WBC) Count 4.6 thou/uL (4.8-10.8)
[2017-10-24] MEDS ORDERED: Prevnar 13-Val Conj/PF 0.5 ML SYRINGE IM ONE (09:00)
[2017-10-24] MEDS: Enoxaparin Sodium 40 MG/0.4 ML SYRINGE SC SCH (10:11)
--- NOTE | 2017-10-24 11:31 | PDOC.PN ---
- Subjective Encounter Start Date: 10/24/17 Encounter Start Time: 11:29 Subjective: on BIPAP, still feels air hunger - Objective Resuscitation Status: Resuscitation Status FULL:Full Resuscitation MAR Reviewed: Yes Vital Signs & Weight: Vital Signs (12 hours) Temp Pulse Resp BP Pulse Ox 10/24/17 11:22 103 H 17 99 10/24/17 10:53 98.9 F 104 H 19 134/64 99 10/24/17 08:00 98.2 F 103 H 18 98 10/24/17 07:12 98.2 F 103 H 18 124/57 L 97 10/24/17 07:00 96 10/24/17 06:58 102 H 17 96 10/24/17 06:57 103 H 16 92 L 10/24/17 04:00 97.5 F L 96 22 H 113/55 L 92 L 10/24/17 00:02 98 18 99 10/24/17 00:01 96 18 99 10/24/17 00:00 95 22 H 122/35 L 91 L Weight Weight 208 lb 4.8 oz I&O: 10/23/17 10/24/17 10/25/17 06:59 06:59 06:59 Intake Total 240 Output Total 400 100 Balance -160 -100 Result Diagrams: 10/24/17 04:14 10/24/17 04:14 Phys Exam - Physical Examination Neck: no JVD coarse BS with rhonchi, no focal findings Cardiovascular: RRR, no significant murmur Gastrointestinal: soft, non-tender, positive bowel sounds Musculoskeletal: edema present Dx/Plan (1) Acute on chronic respiratory failure with hypoxia and hypercapnia Code(s): J96.21 - ACUTE AND CHRONIC RESPIRATORY FAILURE WITH HYPOXIA; J96.22 - ACUTE AND CHRONIC RESPIRATORY FAILURE WITH HYPERCAPNIA Status: Acute (2) COPD exacerbation Code(s): J44.1 - CHRONIC OBSTRUCTIVE PULMONARY DISEASE W (ACUTE) EXACERBATION Status: Acute (3) Hypothyroid Code(s): E03.9 - HYPOTHYROIDISM, UNSPECIFIED Status: Chronic Qualifiers: Hypothyroidism type: unspecified Qualified Code(s): E03.9 - Hypothyroidism , unspecified (4) Hypertension Code(s): I10 - ESSENTIAL (PRIMARY) HYPERTENSION Status: Chronic Qualifiers: Hypertension type: essential hypertension Qualified Code(s): I10 - Essential (primary) hypertension - Plan cont nebs, steroids,antibx -: start dulera -: check ABG * .
[2017-10-24 12:10] LABS: CO2 Tension 80.6 mmHg (35.0-45.0); pH, Arterial 7.32 (7.35-7.45)
[2017-10-24 12:11] LABS: Actual Bicarbonate (HCO3a) 40.1 mEq/L (22-26); Analyzer IN Cardio ER; Base Excess (BEa) 11.1 mEq/L (0 (+/-) 2.5); Calcium, Ionized 1.1 mmol/L (1.12-1.30); Hemoglobin (Hb) 11.7 g/dL (12.0-16.0); O2 Tension (PaO2) 69.6 mmHg (80.0-100.0)
[2017-10-24 12:12] LABS: Puncture Site LBA
[2017-10-24] MEDS: Acetaminophen 325 MG TAB PO PRN (12:23)
--- NOTE | 2017-10-24 13:36 | CON ---
DATE OF CONSULTATION: 10/24/2017 CONSULTING PHYSICIAN: Hospitalist group. REASON FOR CONSULTATION: Acute respiratory failure related COPD. HISTORY OF PRESENT ILLNESS: Ms. Simon is a pleasant 67-year-old female who presented to the [facility] ency room last night with increasing shortness of breath. She was hospitalized here last month with similar symptomatology. She had to be placed on BiPAP last night. She was febrile. She is doing be tter today. REVIEW OF SYSTEMS: Twelve point review of systems otherwise negative. PAST MEDICAL HISTORY: 1. COPD with chronic hypoxic respiratory failure. 2. Hypothyroidism. 3. Hyperlipidemia. 4. Hypertension. 5. Osteoarthritis. PAST SURGICAL HISTORY: None. ALLERGIES: PENICILLIN. MEDICATIONS: 1. Prior to admission, Ventolin HFA as needed. 2. Aspirin 81 mg daily. 3. Symbicort 2 puffs twice daily. 4. Levothyroxine 100 mcg daily. 5. Pravastatin 40 mg daily. 6. Spiriva Respimat 2 puffs daily. SOCIAL HISTORY: Quit smoking 8-10 years ago. Does not consume alcohol, does not use illicit drugs. FAMILY MEDICAL HISTORY: Remarkable for breast cancer, diabetes mellitus, prostate cancer and leukemi a. PHYSICAL EXAMINATION: VITAL SIGNS: Temperature 98.9, pulse 103, respirations 17, O2 sat 99%, blood pressure 134/64. HEENT: Unremarkable. NECK: Without adenopathy or JVD. LUNGS: Tight end expiratory wheezing. CARDIOVASCULAR: S1, S2 regular, without murmur. ABDOMEN: Soft and nontender. EXTREMITIES: No clubbing, cyanosis or edema. She has multiple bruises on her arms. LABORATORY DATA: ABG - pH 7.31, pCO2 of 67, pO2 of 103, white blood cell count 4.6, hematocrit 39.2, platelet count 201. Sodium 138, potassium 5.3, chloride 100, CO2 of 31, BUN 11, creatinine 0.6, glu cose 150. Chest x-ray suggests the possibility of a small left pleural effusion. ASSESSMENT: 1. Chronic obstructive pulmonary disease with exacerbation. 2. Acute hypercapnic/hypoxic respiratory failure requiring mechanical ventilation. 3. Question of concurrent pneumonia. PLAN: 1. The patient needs to continue on IV antibiotics. 2. Recheck ABG. 3. Continue BiPAP - I have adjusted settings downward. 4. Continue steroids and nebs. 5. Discussed in detail with Dr. Gallagher. Seventy minutes time was spent performing the consultation; of that time, greater than 50% was spent with the patient and/or on the patient's floor.
--- NOTE | 2017-10-24 15:46 | PDOC.EVN ---
Event Note - Event Note Event Note: FU ABG demonstrates pH 7.32, high CO2. stable on BIPAP.
[2017-10-24] MEDS: Mometasone/Formoterol 120 PUFF INHALER INH SCH (18:54)
--- NOTE | 2017-10-25 09:46 | PRG ---
DATE OF SERVICE: 10/25/2017 SUBJECTIVE: The patient is doing better, although she is still wearing the BiPAP this morning. PHYSICAL EXAMINATION: VITAL SIGNS: Temperature 98.1, pulse 99, respirations 15, O2 sat 100%. HEENT: Unremarkable. NECK: No JVD. LUNGS: Bilateral expiratory wheezing. CARDIAC: S1 and S2 regular. ABDOMEN: Soft. EXTREMITIES: No edema. LABORATORY DATA: No labs were obtained today. ASSESSMENT: 1. Chronic obstructive pulmonary disease exacerbation. 2. Acute hypercapnic/hypoxic respiratory failure requiring mechanical ventilation. 3. Question of concurrent pneumonia. PLAN: I want her to gradually wean off the BiPAP today. We will continue nebulization treatments, s teroids, and antibiotics. Dr. Kaur will assume care tomorrow.
--- NOTE | 2017-10-25 10:28 | PDOC.PN ---
- Subjective Encounter Start Date: 10/25/17 Encounter Start Time: 10:26 Patient seen and examined, no new issues or complaints, all questions answered. - Objective Resuscitation Status: Resuscitation Status FULL:Full Resuscitation Vital Signs & Weight: Vital Signs (12 hours) Temp Pulse Resp BP Pulse Ox 10/25/17 07:33 100 10/25/17 07:32 15 98 10/25/17 07:30 99 22 H 100 10/25/17 07:16 98.1 F 104 H 20 149/72 H 97 10/25/17 04:28 95 16 98 10/25/17 04:27 16 98 10/25/17 03:54 97.1 F L 88 17 128/61 95 10/25/17 00:00 98.3 F 108 H 21 H 143/54 H 95 10/24/17 22:46 98 20 96 Weight Weight 203 lb 9.6 oz I&O: 10/24/17 10/25/17 10/26/17 06:59 06:59 06:59 Intake Total 240 300 Output Total 400 500 Balance -160 -200 Result Diagrams: 10/24/17 04:14 10/24/17 04:14 Phys Exam - Physical Examination Constitutional: NAD obese on bipap HEENT: PERRLA, moist MMs Neck: no nodes, no JVD Respiratory: no wheezing, no rales Cardiovascular: RRR, no significant murmur, no rub Gastrointestinal: soft, non-tender, no distention Musculoskeletal: pulses present, edema present (trace) Neurological: non-focal, normal sensation Dx/Plan (1) Acute on chronic respiratory failure with hypoxia and hypercapnia Code(s): J96.21 - ACUTE AND CHRONIC RESPIRATORY FAILURE WITH HYPOXIA; J96.22 - ACUTE AND CHRONIC RESPIRATORY FAILURE WITH HYPERCAPNIA Status: Acute (2) COPD exacerbation Code(s): J44.1 - CHRONIC OBSTRUCTIVE PULMONARY DISEASE W (ACUTE) EXACERBATION Status: Acute (3) PNA (pneumonia) Code(s): J18.9 - PNEUMONIA, UNSPECIFIED ORGANISM Status: Acute (4) Hypertension Code(s): I10 - ESSENTIAL (PRIMARY) HYPERTENSION Status: Chronic Qualifiers: Hypertension type: essential hypertension Qualified Code(s): I10 - Essential (primary) hypertension (5) Hypothyroid Code(s): E03.9 - HYPOTHYROIDISM, UNSPECIFIED Status: Chronic Qualifiers: Hypothyroidism type: unspecified Qualified Code(s): E03.9 - Hypothyroidism , unspecified - Plan * cont bipap for now, ICU team following, appreciate input * BP stable * patient symptomatically improving, bipap being weaned * continue current plan of care for now * case and plan d/w patient at length, she understands and agrees with this plan
[2017-10-25] MEDS: Mometasone/Formoterol 120 PUFF INHALER INH SCH ×2 (10:52→20:04)
[2017-10-25] MEDS: Enoxaparin Sodium 40 MG/0.4 ML SYRINGE SC SCH (11:06)
[2017-10-26 07:37] LABS: #Eosinphils 0.2 thou/uL (0.0-0.7); #Lymphocytes 1.4 thou/uL (1.20-3.40); #Monocytes 0.4 thou/uL (0.11-0.59); #Neutrophils 6.7 thou/uL (1.40-6.50); %Basophils 0.4 % (0.0-1.0); %Eosinophils 1.8 % (0.0-10.0); %Lymphocytes 16.4 % (21.0-51.0); %Monocytes 4.3 % (0.0-10.0); %Neutrophils 77.1 % (42.0-75.0); Hemoglobin 11.8 g/dL (12.0-16.0); Mean Corpuscular HGB CONC 30.6 g/dL (32.0-36.0); Mean Corpuscular Volume 91.3 fl (81.0-99.0); Mean Platelet Volume 6.2 fL (7.4-10.4); Platelet Count 263 thou/uL (130-400); RBC Distribution Width 14.2 % (11.5-14.5); Red Blood Cell (RBC) Count 4.23 mill/uL (4.20-5.40); White Blood Cell (WBC) Count 8.6 thou/uL (4.8-10.8)
[2017-10-26 07:58] LABS: ALT (SGPT) 114 U/L (8-55); AST (SGOT) 88 U/L (5-34); Albumin 3.6 g/dL (3.4-4.8); Alkaline Phosphatase 69 U/L (40-150); BUN (Urea Nitrogen) 18 mg/dL (9.8-20.1); Bilirubin, Total 0.2 mg/dL (0.2-1.2); Calc. Creatinine Clearance 112 mL/min (70-130); Calcium 8.9 mg/dL (7.8-10.44); Estimated GFR-MDRD 79; Globulin 3.4 g/dL (2.4-3.5); Glucose 165 mg/dL (80-115); Magnesium 2.6 mg/dL (1.6-2.6)
[2017-10-26 08:09] LABS: Anion Gap 16 mmol/L (10-20); Carbon Dioxide 38 mmol/L (23-31); Chloride 95 mmol/L (98-107); Potassium 4.5 mmol/L (3.5-5.1); Sodium 144 mmol/L (136-145)
[2017-10-26] MEDS: Enoxaparin Sodium 40 MG/0.4 ML SYRINGE SC SCH (08:24)
[2017-10-26] MEDS: Mometasone/Formoterol 120 PUFF INHALER INH SCH ×2 (10:32→18:23)
[2017-10-26] MEDS ORDERED: acetaZOLAMIDE Sodium 500 mg Vial IVP SCH (11:00)
--- NOTE | 2017-10-26 12:28 | PRG ---
DATE OF SERVICE: 10/26/2017 SERVICE: Pulmonary Medicine. INTERVAL HISTORY: Patient is doing poorly from a respiratory standpoint. That being said, she feels much improved compared to presentation. [facility] She was disch arged about a week prior to coming back to the emergency department. Over that week, she had a slow progressive increasing shortness of breath. She also noted increasing lower extremity swelling. Eit her way, she has returned to the hospital. Overnight, she required a little bit of BiPAP started get ting nauseated, late last evening. The BiPAP was subsequently discontinued. She has been doing fair ly well since. PHYSICAL EXAMINATION: VITAL SIGNS: Afebrile, pulse 112, blood pressure 146/96, respirations 17, saturation 92% on 4 liters nasal cannula. GENERAL: Patient is awake, alert, in no apparent distress. LUNGS: There are crackles present throughout bilateral lung torres. It is more predominantly displa yed in the bases. There is a prolonged expiratory phase with wheezing. Rhonchi are present, but diane ar with cough. HEART: Normal rate, regular. ABDOMEN: Soft, nontender, nondistended. Bowel sounds are positive. MUSCULOSKELETAL: No cyanosis or clubbing. There is a trace 1+ pitting in the bilateral lower extrem ities. NEUROLOGIC: Grossly nonfocal. LABORATORY DATA: WBC 8.6, hemoglobin 11.8, platelets 263,000. PH 7.32, pCO2 of 80.6, pO2 of 69. Cr eatinine 0.73. Basic metabolic profile is otherwise unremarkable except for a bicarbonate of 38. T and ALT are gently up trending. Troponin is negative x2. BNP is 12.9. Urine catheter is growing Klebsiella pneumonia, which is a pansensitive organism. Chest x-ray demonstrates no acute cardiopulm onary abnormality. ASSESSMENT: 1. Acute on chronic hypoxic and hypercapnic respiratory failure, requiring a brief mechanical ventil ation. 2. Chronic obstructive pulmonary disease with acute exacerbation. DISCUSSION AND PLAN: I will give her a dose of acetazolamide today. We may consider dose of Lasix s tarting tomorrow morning based on her pulmonary function status. She will remain in the IMCU for the time being. We will try to stay off the BiPAP in the next 24 hours and if were successfully doing t his, we can likely transition her out of the ICU once again. Pulmonary will continue to follow along .
--- NOTE | 2017-10-26 20:48 | PDOC.PN ---
- Subjective Encounter Start Date: 10/26/17 Encounter Start Time: 09:30 Patient seen and examined. No new complaints. No overnight events. Off NIPPV. Wheezing and dry cough + - Objective Resuscitation Status: Resuscitation Status FULL:Full Resuscitation MAR Reviewed: Yes Vital Signs & Weight: Vital Signs (12 hours) Temp Pulse Resp BP Pulse Ox 10/26/17 18:25 124 H 22 H 93 L 10/26/17 18:23 124 H 22 H 93 L 10/26/17 15:31 98.1 F 112 H 16 159/95 H 98 10/26/17 14:00 20 92 L 10/26/17 13:59 107 H 21 H 92 L 10/26/17 11:14 97 F L 106 H 22 H 184/95 H 100 10/26/17 10:32 108 H 20 96 Weight Weight 213 lb I&O: 10/25/17 10/26/17 10/27/17 06:59 06:59 06:59 Intake Total 300 200 Output Total 500 Balance -200 200 Result Diagrams: 10/27/17 04:20 10/28/17 04:06 EKG Reviewed by me: Yes (Tele SR) Phys Exam - Physical Examination Mild resp distress Respiratory: wheezing present Scat rhonchi Cardiovascular: RRR, no rub Gastrointestinal: soft, non-tender, positive bowel sounds Musculoskeletal: no edema Neurological: moves all 4 limbs Dx/Plan - Plan continue antibiotics, respiratory therapy, DVT proph w/lovenox, DVT proph w/SCDs IMPRESSION: 1. Acute hypoxic/hypercapnic respiratory failure secondary to chronic obstructive pulmonary disease exacerbation. slowly improving 2. Chronic respiratory failure on p.r.n. home oxygen. 3. Obesity with a BMI at 36.6 4. Hypertension. 5. Hyperlipidemia. 6. Former smoker/CKD 2/Hypothyroidism/Other issues per H&P PLAN: * Pulmonary following * Cont Atbx/Nebs/Steroids/Mucinex * Cont current meds as below * AM labs Review of Systems - Review of Systems Constitutional: negative: fever, chills, sweats, weakness, malaise, other Gastrointestinal: negative: Nausea, Vomiting, Abdominal Pain, Diarrhea, Constipation, Melena, Hematochezia, Other - Medications/Allergies Allergies/Adverse Reactions: Allergies Allergy/AdvReac Type Severity Reaction Status Date / Time Penicillins Allergy Verified 09/26/17 00:37 Medications: Current Medications Acetaminophen (Tylenol) 650 mg PO Q4H PRN PRN Reason: Headache/Fever or Pain Last Admin: 10/24/17 12:23 Dose: 650 mg Acetaminophen (Tylenol) 650 mg CO Q4H PRN PRN Reason: Headache/Fever or Pain Albuterol/Ipratropium (Duoneb) 3 ml NEB [id number] [facility] Last Admin: 10/26/17 18:25 Dose: 3 ml Bisacodyl (Dulcolax) 10 mg PO DAILYPRN PRN PRN Reason: Constipation Enoxaparin Sodium (Lovenox) 40 mg SC 0900 [facility] Last Admin: 10/26/17 08:24 Dose: 40 mg Levofloxacin 750 mg/ Device 150 mls @ 100 mls/hr IVPB 1700 [facility] Last Admin: 10/26/17 17:41 Dose: 150 mls Acetazolamide Sodium 500 mg/ (Sodium Chloride) 50 mls @ 100 mls/hr IVPB DAILY [facility] Stop: 10/27/17 09:29 Methylprednisolone Sodium Succinate (Solu-Medrol) 40 mg IVP DAILY [facility] Mometasone Furoate/Formoterol Fumar (Dulera 200 Mcg/5 Mcg Inhaler) 2 puff INH BID-RT [facility] Last Admin: 10/26/17 18:23 Dose: 2 puff Sodium Chloride (Flush - Normal Saline) 10 ml IVF Q12HR [facility] Last Admin: 10/26/17 08:24 Dose: 10 ml Sodium Chloride (Flush - Normal Saline) 10 ml IVF PRN PRN PRN Reason: Saline Flush Sterile Water (Water For Injection) 10 ml FS DAILY [facility]
[2017-10-27] MEDS: Acetaminophen 325 MG TAB PO PRN (02:32)
[2017-10-27 04:42] LABS: Hemoglobin 12.8 g/dL (12.0-16.0); Platelet Count 299 thou/uL (130-400)
[2017-10-27 05:01] LABS: Albumin 3.6 g/dL (3.4-4.8); Anion Gap 6 mmol/L (10-20); BUN (Urea Nitrogen) 20 mg/dL (9.8-20.1); Calc. Creatinine Clearance 112 mL/min (70-130); Calcium 8.8 mg/dL (7.8-10.44); Carbon Dioxide 37 mmol/L (23-31); Chloride 99 mmol/L (98-107); Estimated GFR-MDRD 79; Glucose 121 mg/dL (80-115); Magnesium 2.4 mg/dL (1.6-2.6); Phosphorus 2.7 mg/dL (2.3-4.7); Potassium 3.7 mmol/L (3.5-5.1); Sodium 138 mmol/L (136-145)
[2017-10-27] MEDS: Mometasone/Formoterol 120 PUFF INHALER INH SCH ×2 (08:02→19:29)
[2017-10-27] MEDS: Sterile Water 10 ML VIAL FS SCH (08:37)
[2017-10-27] MEDS: Enoxaparin Sodium 40 MG/0.4 ML SYRINGE SC SCH (08:37)
[2017-10-27] MEDS ORDERED: acetaZOLAMIDE Sodium 500 MG in Sodium Chloride 0.9% 50 ML IVPB SCH ×2 (09:00→09:45)
--- NOTE | 2017-10-27 09:34 | PRG ---
DATE OF SERVICE: 10/27/2017 SERVICE: Pulmonary Medicine INTERVAL HISTORY: The patient is doing fine from cardiovascular and respiratory standpoint. She den ies any current nausea, vomiting or diarrhea. She is breathing actually much more comfortably today. She is sleeping well. She did not require any BiPAP overnight. Otherwise, there were no events. PHYSICAL EXAMINATION: VITAL SIGNS: Afebrile, pulse 95, blood pressure 120/68, respirations 20, saturation 95% on 3 liters nasal cannula. GENERAL: The patient is awake, alert, in no apparent distress. LUNGS: Excellent air entry with no prolonged expiratory phase, wheezing, rhonchi or crackles. HEART: Normal rate, regular. ABDOMEN: Soft, nontender, nondistended. Bowel sounds are positive. MUSCULOSKELETAL: No cyanosis or clubbing. There is trace pitting in the bilateral lower extremities . NEUROLOGIC: Grossly nonfocal. LABORATORY DATA: Hemoglobin 12.8. Creatinine 0.73. Basic metabolic profile is otherwise unremarkab le. Bicarbonate has improved to 37, anion gap 6. ASSESSMENT: 1. Acute on chronic hypoxic and hypercapnic respiratory failure. 2. Chronic obstructive pulmonary disease with acute exacerbation. DISCUSSION AND PLAN: I will continue to gently diurese her as tolerated. Pulmonary Critical Care wi ll continue to follow along. She can move to the medical unit today. She has been off of BiPAP for greater than 24 hours. Pulmonary will continue to follow along.
--- NOTE | 2017-10-27 21:36 | PDOC.PN ---
- Subjective Encounter Start Date: 10/27/17 Encounter Start Time: 18:00 Patient seen and examined. No new complaints. No overnight events. Some cough. SOB improving. No fever or chills. - Objective Resuscitation Status: Resuscitation Status FULL:Full Resuscitation MAR Reviewed: Yes Vital Signs & Weight: Vital Signs (12 hours) Temp Pulse Resp BP Pulse Ox 10/27/17 20:00 98.8 F 115 H 22 H 167/88 H 94 L 10/27/17 19:15 107 H 20 96 10/27/17 18:10 98.8 F 115 H 18 167/88 H 94 L 10/27/17 15:23 98.2 F 105 H 20 153/95 H 94 L 10/27/17 14:41 124 H 22 H 94 L 10/27/17 11:44 98.0 F 113 H 18 140/78 94 L 10/27/17 10:56 106 H 20 95 Weight Weight 205 lb 12.8 oz I&O: 10/26/17 10/27/17 10/28/17 06:59 06:59 06:59 Intake Total 200 280 740 Output Total 350 Balance 200 -70 740 Result Diagrams: 10/27/17 04:20 10/28/17 04:06 EKG Reviewed by me: Yes (Tele SR earlier today) Phys Exam - Physical Examination Constitutional: NAD Respiratory: wheezing present (scat) Scat rhonchi Cardiovascular: RRR, no rub Gastrointestinal: soft, non-tender, positive bowel sounds Musculoskeletal: no edema Neurological: moves all 4 limbs Psychiatric: A&O x 3 Dx/Plan - Plan continue antibiotics, respiratory therapy, DVT proph w/lovenox, DVT proph w/SCDs IMPRESSION: 1. Acute hypoxic/hypercapnic respiratory failure secondary to chronic obstructive pulmonary disease exacerbation. improving. Off NIPPV 2. Chronic respiratory failure on p.r.n. home oxygen. 3. Obesity with a BMI at 36.6 4. Hypertension. 5. Hyperlipidemia. 6. Former smoker/CKD 2/Hypothyroidism/Other issues per H&P PLAN: * On Medical floor * Off NIPPV * Cont Atbx/Nebs/Steroids/Mucinex * Cont other meds as below * SNF Eval * Pulmonary following Review of Systems - Review of Systems Cardiovascular: negative: chest pain, palpitations, orthopnea, paroxysmal nocturnal dyspnea, edema, light headedness, other Gastrointestinal: negative: Nausea, Vomiting, Abdominal Pain, Diarrhea, Constipation, Melena, Hematochezia, Other - Medications/Allergies Allergies/Adverse Reactions: Allergies Allergy/AdvReac Type Severity Reaction Status Date / Time Penicillins Allergy Verified 09/26/17 00:37 Medications: Current Medications Acetaminophen (Tylenol) 650 mg PO Q4H PRN PRN Reason: Headache/Fever or Pain Last Admin: 10/27/17 02:32 Dose: 650 mg Acetaminophen (Tylenol) 650 mg [place] Q4H PRN PRN Reason: Headache/Fever or Pain Albuterol/Ipratropium (Duoneb) 3 ml NEB [id number] [facility] Last Admin: 10/27/17 19:15 Dose: 3 ml Bisacodyl (Dulcolax) 10 mg PO DAILYPRN PRN PRN Reason: Constipation Enoxaparin Sodium (Lovenox) 40 mg SC 0900 [facility] Last Admin: 10/27/17 08:37 Dose: 40 mg Guaifenesin (Mucinex) 600 mg PO Q12H [facility] Levofloxacin 750 mg/ Device 150 mls @ 100 mls/hr IVPB 1700 [facility] Last Admin: 10/27/17 18:20 Dose: Not Given Levothyroxine Sodium (Synthroid) 100 mcg PO 0600 [facility] Methylprednisolone Sodium Succinate (Solu-Medrol) 40 mg IVP DAILY [facility] Last Admin: 10/27/17 08:37 Dose: 40 mg Mometasone Furoate/Formoterol Fumar (Dulera 200 Mcg/5 Mcg Inhaler) 2 puff INH BID-RT [facility] Last Admin: 10/27/17 19:29 Dose: 2 puff Pravastatin Sodium (Pravachol) 40 mg PO QPM [facility] Sodium Chloride (Flush - Normal Saline) 10 ml IVF Q12HR [facility] Last Admin: 10/27/17 21:33 Dose: 10 ml Sodium Chloride (Flush - Normal Saline) 10 ml IVF PRN PRN PRN Reason: Saline Flush Sterile Water (Water For Injection) 10 ml FS DAILY [facility] Last Admin: 10/27/17 08:37 Dose: 10 ml
[2017-10-27] MEDS: guaiFENesin ER 600 MG TAB PO SCH (21:43)
[2017-10-28 04:49] LABS: Anion Gap 10 mmol/L (10-20); BUN (Urea Nitrogen) 20 mg/dL (9.8-20.1); Calc. Creatinine Clearance 112 mL/min (70-130); Calcium 8.8 mg/dL (7.8-10.44); Carbon Dioxide 32 mmol/L (23-31); Chloride 102 mmol/L (98-107); Estimated GFR-MDRD 82; Glucose 111 mg/dL (80-115); Potassium 3.9 mmol/L (3.5-5.1); Sodium 140 mmol/L (136-145)
[2017-10-28] MEDS: Levothyroxine Sodium 100 MCG TAB PO SCH (05:52)
[2017-10-28] MEDS: Acetaminophen 325 MG TAB PO PRN ×2 (05:52→16:57)
[2017-10-28] MEDS: Mometasone/Formoterol 120 PUFF INHALER INH SCH ×2 (07:12→19:07)
[2017-10-28] MEDS: Enoxaparin Sodium 40 MG/0.4 ML SYRINGE SC SCH (08:43)
[2017-10-28] MEDS: Sterile Water 10 ML VIAL FS SCH (08:44)
[2017-10-28] MEDS: guaiFENesin ER 600 MG TAB PO SCH ×2 (09:05→19:59)
--- NOTE | 2017-10-28 09:57 | PRG ---
DATE OF SERVICE: 10/28/2017 SERVICE: Pulmonary Medicine. INTERVAL HISTORY: The patient is doing really well from a respiratory standpoint. She indicates baldemar t her breathing is much more comfortable. She denies any chest pain, nausea, vomiting, fevers or chi lls. Otherwise, there has been no interval change to her condition. She still feels extraordinarily weak. She has no energy, she has complaints of myalgia and malaise. She is working with physical t herapy to get moving. She is a little discouraged by the fact that she is not back to baseline, kamryn use she feels like she is breathing better. PHYSICAL EXAMINATION: VITAL SIGNS: Afebrile, pulse 105, blood pressure 114/72, respirations 16, saturation 96% on 2 liters nasal cannula. GENERAL: The patient is awake and alert, in no apparent distress. LUNGS: Decent air entry bilaterally. There is a prolonged expiratory phase and wheezing present. N o rhonchi or crackles are appreciated today. HEART: Normal rate, regular. ABDOMEN: Soft, nontender, nondistended. Bowel sounds are positive. MUSCULOSKELETAL: No cyanosis or clubbing. No pitting in the bilateral lower extremities. NEUROLOGIC: Grossly nonfocal. LABORATORY DATA: Basic metabolic profile is essentially unremarkable with bicarbonate that is improv ed to 32. ASSESSMENT: 1. Acute on chronic hypoxic and hypercapnic respiratory failure. 2. Chronic obstructive pulmonary disease with acute exacerbation. DISCUSSION AND PLAN: We will continue to diurese her with p.o. Lasix on a once daily basis for the t selena being. We will continue to increase mobility as tolerated. In 24 hours, if she continues to do well and demonstrates improving strength, she can be considered for discharge from the hospital. She will need 5 days of antibiotics and steroids. She will continue her home inhalers on discharge from the hospital and we will consider modifying them in the outpatient setting.
[2017-10-28] MEDS ORDERED: Ascorbic Acid 500 mg Chewable Tablet PO SCH (10:15)
[2017-10-28] MEDS: Pravastatin Sodium 40 MG TAB PO SCH (19:59)
--- NOTE | 2017-10-28 21:04 | PDOC.PN ---
- Subjective Encounter Start Date: 10/28/17 Encounter Start Time: 14:00 Patient seen and examined. No new complaints. No overnight events - Objective Resuscitation Status: Resuscitation Status FULL:Full Resuscitation MAR Reviewed: Yes Vital Signs & Weight: Vital Signs (12 hours) Temp Pulse Pulse Resp BP Pulse Ox Pulse Ox 10/28/17 19:07 108 H 16 96 10/28/17 19:06 108 H 16 96 10/28/17 13:59 108 H 16 95 10/28/17 11:03 98.1 F 108 H 16 128/82 95 10/28/17 10:52 105 H 100 10/28/17 10:50 110 H 14 Weight Weight 205 lb 12.8 oz I&O: 10/27/17 10/28/17 10/29/17 06:59 06:59 06:59 Intake Total 875 542 7590 Output Total 350 Balance -70 740 1200 Result Diagrams: 10/27/17 04:20 10/28/17 04:06 Phys Exam - Physical Examination Constitutional: NAD Neck: no JVD Respiratory: no rales Scat wheezing and rhonchi Cardiovascular: RRR, no rub Gastrointestinal: soft, non-tender, positive bowel sounds Neurological: moves all 4 limbs Psychiatric: A&O x 3 Dx/Plan - Plan DVT proph w/SCDs IMPRESSION: 1. Acute hypoxic/hypercapnic respiratory failure secondary to chronic obstructive pulmonary disease exacerbation. improving. 2. Chronic respiratory failure on p.r.n. home oxygen. 3. Obesity with a BMI at 36.6 4. Hypertension. 5. Hyperlipidemia. 6. Former smoker/CKD 2/Hypothyroidism/Other issues per H&P PLAN: * Off NIPPV * Cont Atbx/Nebs/Steroids * Cont other meds as below * SNF Eval * Pulmonary following Review of Systems - Review of Systems Constitutional: negative: fever, chills, sweats, weakness, malaise, other Gastrointestinal: negative: Nausea, Vomiting, Abdominal Pain, Diarrhea, Constipation, Melena, Hematochezia, Other - Medications/Allergies Allergies/Adverse Reactions: Allergies Allergy/AdvReac Type Severity Reaction Status Date / Time Penicillins Allergy Verified 09/26/17 00:37 Medications: Current Medications Acetaminophen (Tylenol) 650 mg PO Q4H PRN PRN Reason: Headache/Fever or Pain Last Admin: 10/28/17 16:57 Dose: 650 mg Acetaminophen (Tylenol) 650 mg [place] Q4H PRN PRN Reason: Headache/Fever or Pain Albuterol/Ipratropium (Duoneb) 3 ml NEB [id number] [facility] Last Admin: 10/28/17 19:06 Dose: 3 ml Ascorbic Acid (Vitamin C) 1,000 mg PO DAILY [facility] Stop: 10/29/17 09:01 Bisacodyl (Dulcolax) 10 mg PO DAILYPRN PRN PRN Reason: Constipation Enoxaparin Sodium (Lovenox) 40 mg SC 0900 [facility] Last Admin: 10/28/17 08:43 Dose: 40 mg Guaifenesin (Mucinex) 600 mg PO Q12H [facility] Last Admin: 10/28/17 19:59 Dose: 600 mg Levofloxacin (Levaquin) 750 mg PO 0600 [facility] Stop: 10/31/17 06:01 Levothyroxine Sodium (Synthroid) 100 mcg PO 0600 [facility] Last Admin: 10/28/17 05:52 Dose: 100 mcg Mometasone Furoate/Formoterol Fumar (Dulera 200 Mcg/5 Mcg Inhaler) 2 puff INH BID-RT [facility] Last Admin: 10/28/17 19:07 Dose: 2 puff Pravastatin Sodium (Pravachol) 40 mg PO QPM [facility] Last Admin: 10/28/17 19:59 Dose: 40 mg Prednisone (Prednisone) 40 mg PO QAM-WM [facility] Stop: 10/31/17 08:01 Saccharomyces Boulardii (Florastor) 250 mg PO DAILY [facility] Sodium Chloride (Flush - Normal Saline) 10 ml IVF Q12HR [facility] Last Admin: 10/28/17 20:00 Dose: 10 ml Sodium Chloride (Flush - Normal Saline) 10 ml IVF PRN PRN PRN Reason: Saline Flush Sterile Water (Water For Injection) 10 ml FS DAILY [facility] Last Admin: 10/28/17 08:44 Dose: 10 ml
[2017-10-29] MEDS: Levothyroxine Sodium 100 MCG TAB PO SCH (06:08)
[2017-10-29] MEDS: Mometasone/Formoterol 120 PUFF INHALER INH SCH ×2 (06:36→18:33)
[2017-10-29] MEDS: predniSONE 20 MG TAB PO SCH (08:57)
[2017-10-29] MEDS: Saccharomyces boulardii 250 MG CAP PO SCH (08:57)
[2017-10-29] MEDS: Enoxaparin Sodium 40 MG/0.4 ML SYRINGE SC SCH (08:57)
[2017-10-29] MEDS: Sterile Water 10 ML VIAL FS SCH (08:58)
[2017-10-29] MEDS ORDERED: Ascorbic Acid 500 mg Chewable Tablet PO SCH (09:00)
[2017-10-29] MEDS: guaiFENesin ER 600 MG TAB PO SCH ×2 (09:01→20:37)
[2017-10-29] MEDS: Acetaminophen 325 MG TAB PO PRN ×2 (15:21→21:53)
--- NOTE | 2017-10-29 15:24 | PRG ---
DATE OF SERVICE: 10/29/2017 SERVICE: Pulmonary Medicine. INTERVAL HISTORY: The patient is doing better from a respiratory standpoint. That being said, with minimal activity, she desaturates significantly. She takes a second to catch backup. Otherwise, the re has been no interval change to her condition. PHYSICAL EXAMINATION: VITAL SIGNS: Afebrile, pulse 112, blood pressure 137/81, respirations 16, saturation 94% on 2 liters nasal cannula. GENERAL: The patient is awake and alert. No apparent distress. LUNGS: Improved air entry. There is extensive polyphonic wheezing throughout bilateral lung torres on exhalation. No rhonchi or crackles are appreciated today. HEART: Normal rate and regular. ABDOMEN: Soft, nontender, and nondistended. Bowel sounds are positive. MUSCULOSKELETAL: No cyanosis or clubbing. There is no pitting in the bilateral lower extremities. NEUROLOGIC: Grossly nonfocal. ASSESSMENT: 1. Acute on chronic hypoxic and hypercapnic respiratory failure. 2. Chronic obstructive pulmonary disease with acute exacerbation. PLAN: We will continue antibiotics, nebulized medications, and steroids. We will continue to diures e gently to euvolemia. Pulmonary or Critical Care will continue to follow along while she remains in house. We will need to evaluate her for a home ventilator on discharge from the hospital. I will p erform an echocardiogram to assess LV function.
--- NOTE | 2017-10-29 18:29 | PDOC.PN ---
- Subjective Encounter Start Date: 10/29/17 Encounter Start Time: 12:00 Patient seen and examined. SOB on mild exertion. Feels gen weak. No overnight events - Objective Resuscitation Status: Resuscitation Status FULL:Full Resuscitation MAR Reviewed: Yes Vital Signs & Weight: Vital Signs (12 hours) Temp Pulse Resp BP Pulse Ox 10/29/17 16:07 108 H 17 10/29/17 10:48 110 H 16 10/29/17 08:00 97.9 F 112 H 16 94 L 10/29/17 07:25 97.9 F 112 H 16 137/81 94 L 10/29/17 06:37 110 H 14 Weight Weight 205 lb 12.8 oz I&O: 10/28/17 10/29/17 10/30/17 06:59 06:59 06:59 Intake Total 740 1200 120 Balance 740 1200 120 Result Diagrams: 10/27/17 04:20 10/28/17 04:06 Phys Exam - Physical Examination Constitutional: NAD Respiratory: no rales, wheezing present Scat rhonchi Cardiovascular: RRR, no rub Gastrointestinal: soft, non-tender, positive bowel sounds Neurological: non-focal, moves all 4 limbs Psychiatric: A&O x 3 Dx/Plan - Plan plan discussed w/ family (daughter in law), continue antibiotics, PT/OT, respiratory therapy, DVT proph w/lovenox, DVT proph w/SCDs IMPRESSION: 1. Acute hypoxic/hypercapnic respiratory failure secondary to chronic obstructive pulmonary disease exacerbation. slowly improving. 2. Chronic respiratory failure on p.r.n. home oxygen. 3. Obesity with a BMI at 36.6 4. Hypertension. 5. Hyperlipidemia. 6. Former smoker/CKD 2/Hypothyroidism/Other issues per H&P PLAN: * Pulmonary following * Echo and Resp Viral panel ordered * Cont PT * Cont Atbx/Nebs/Steroids * Cont other meds as below * SNF Eval in progress Review of Systems - Review of Systems Respiratory: Cough, Dry, SOB with Excertion. negative: Shortness of Breath, Hemoptysis, Pleuritic Pain, Sputum, Wheezing Cardiovascular: negative: chest pain, palpitations, orthopnea, paroxysmal nocturnal dyspnea, edema, light headedness, other Gastrointestinal: negative: Nausea, Vomiting, Abdominal Pain, Diarrhea, Constipation, Melena, Hematochezia, Other - Medications/Allergies Allergies/Adverse Reactions: Allergies Allergy/AdvReac Type Severity Reaction Status Date / Time Penicillins Allergy Verified 09/26/17 00:37 Medications: Current Medications Acetaminophen (Tylenol) 650 mg PO Q4H PRN PRN Reason: Headache/Fever or Pain Last Admin: 10/29/17 15:21 Dose: 650 mg Acetaminophen (Tylenol) 650 mg [place] Q4H PRN PRN Reason: Headache/Fever or Pain Albuterol/Ipratropium (Duoneb) 3 ml NEB [id number] [facility] Last Admin: 10/29/17 16:07 Dose: 3 ml Bisacodyl (Dulcolax) 10 mg PO DAILYPRN PRN PRN Reason: Constipation Enoxaparin Sodium (Lovenox) 40 mg SC 0900 [facility] Last Admin: 10/29/17 08:57 Dose: 40 mg Guaifenesin (Mucinex) 600 mg PO Q12H [facility] Last Admin: 10/29/17 09:01 Dose: 600 mg Levofloxacin (Levaquin) 750 mg PO 0600 [facility] Stop: 10/31/17 06:01 Last Admin: 10/29/17 06:08 Dose: 750 mg Levothyroxine Sodium (Synthroid) 100 mcg PO 0600 [facility] Last Admin: 10/29/17 06:08 Dose: 100 mcg Mometasone Furoate/Formoterol Fumar (Dulera 200 Mcg/5 Mcg Inhaler) 2 puff INH BID-RT [facility] Last Admin: 10/29/17 06:36 Dose: 2 puff Pravastatin Sodium (Pravachol) 40 mg PO QPM [facility] Last Admin: 10/28/17 19:59 Dose: 40 mg Prednisone (Prednisone) 40 mg PO QAM[facility] Stop: 10/31/17 08:01 Last Admin: 10/29/17 08:57 Dose: 40 mg Saccharomyces Boulardii (Florastor) 250 mg PO DAILY [facility] Last Admin: 10/29/17 08:57 Dose: 250 mg Sodium Chloride (Flush - Normal Saline) 10 ml IVF Q12HR [facility] Last Admin: 10/29/17 08:57 Dose: 10 ml Sodium Chloride (Flush - Normal Saline) 10 ml IVF PRN PRN PRN Reason: Saline Flush Sterile Water (Water For Injection) 10 ml FS DAILY [facility] Last Admin: 10/29/17 08:58 Dose: Not Given
[2017-10-29] MEDS: Pravastatin Sodium 40 MG TAB PO SCH (20:37)
[2017-10-30 04:39] LABS: #Eosinphils 0.3 thou/uL (0.0-0.7); #Lymphocytes 2.8 thou/uL (1.20-3.40); #Monocytes 0.8 thou/uL (0.11-0.59); #Neutrophils 7.2 thou/uL (1.40-6.50); %Basophils 0.2 % (0.0-1.0); %Eosinophils 2.5 % (0.0-10.0); %Lymphocytes 24.8 % (21.0-51.0); %Monocytes 7.4 % (0.0-10.0); %Neutrophils 65.1 % (42.0-75.0); Hemoglobin 12.7 g/dL (12.0-16.0); Mean Corpuscular HGB CONC 31.8 g/dL (32.0-36.0); Mean Corpuscular Hemoglobin 28.6 pg (27.0-31.0); Mean Corpuscular Volume 89.9 fl (81.0-99.0); Mean Platelet Volume 6.3 fL (7.4-10.4); Platelet Count 280 thou/uL (130-400); RBC Distribution Width 14.5 % (11.5-14.5); Red Blood Cell (RBC) Count 4.42 mill/uL (4.20-5.40); White Blood Cell (WBC) Count 11.1 thou/uL (4.8-10.8)
[2017-10-30 05:03] LABS: Anion Gap 9 mmol/L (10-20); BUN (Urea Nitrogen) 12 mg/dL (9.8-20.1); Calc. Creatinine Clearance 126 mL/min (70-130); Calcium 8.5 mg/dL (7.8-10.44); Carbon Dioxide 36 mmol/L (23-31); Chloride 99 mmol/L (98-107); Estimated GFR-MDRD Greater than 90; Glucose 96 mg/dL (80-115); Magnesium 2.2 mg/dL (1.6-2.6); Potassium 3.8 mmol/L (3.5-5.1); Sodium 140 mmol/L (136-145)
[2017-10-30] MEDS: Levothyroxine Sodium 100 MCG TAB PO SCH (05:58)
[2017-10-30] MEDS: Mometasone/Formoterol 120 PUFF INHALER INH SCH ×2 (06:07→18:29)
[2017-10-30] MEDS: predniSONE 20 MG TAB PO SCH (09:14)
[2017-10-30] MEDS: Saccharomyces boulardii 250 MG CAP PO SCH (09:14)
[2017-10-30] MEDS: Enoxaparin Sodium 40 MG/0.4 ML SYRINGE SC SCH (09:15)
[2017-10-30] MEDS: Sterile Water 10 ML VIAL FS SCH (09:18)
[2017-10-30] MEDS: guaiFENesin ER 600 MG TAB PO SCH ×2 (09:18→20:50)
--- NOTE | 2017-10-30 12:55 | PRG ---
DATE OF SERVICE: 10/30/2017 SERVICE: Pulmonary Medicine. INTERVAL HISTORY: The patient is doing fine from a respiratory standpoint. Her strength is improvin g. Her respirations are improving. She is having less difficulty with mobility, though she still re quires significant assistance. We did a respiratory virus panel. It turns out that she had rhinovir us in her nose. This was likely what contributed to her COPD exacerbation. Otherwise, she has no sp ecific complaints and there were no events noted. PHYSICAL EXAMINATION: VITAL SIGNS: Afebrile, pulse 109, blood pressure 145/72, respirations 20, saturation 97% on 2 liters nasal cannula. HEENT: Normocephalic, atraumatic. Sclerae are white, conjunctivae pink. Oral mucosa is moist and w ithout lesions. LUNGS: Much improved air entry. There is still prolonged expiratory phase with wheezing. This is l ess extensive than yesterday and she is moving better air. HEART: Normal rate and regular. ABDOMEN: Soft, nontender, nondistended. Bowel sounds are positive. MUSCULOSKELETAL: No cyanosis or clubbing. There is no pitting in the bilateral lower extremities. NEUROLOGIC: Grossly nonfocal. LABORATORY DATA: WBC 11.1, hemoglobin 12.7, and platelets 280,000. Basic metabolic profile is essen tially unremarkable. Her bicarbonate is currently 36. Respiratory viral panel is growing both human metapneumovirus and rhinovirus. ASSESSMENT: 1. Acute on chronic hypoxic and hypercapnic respiratory failure. 2. Chronic obstructive pulmonary disease with acute exacerbation. 3. Rhinovirus. 4. Human metapneumovirus. DISCUSSION AND PLAN: I will have the patient return to clinic in the outpatient setting. At that lo cation, we will consider her for a noninvasive ventilator. Echocardiogram is currently pending, but from my perspective, she is stable for transition out of the hospital back to a care facility. She c an spent 2 weeks there before following up with me in the outpatient setting. If she remains inhouse , I will continue to follow.
[2017-10-30] MEDS: Acetaminophen 325 MG TAB PO PRN ×2 (15:33→21:34)
[2017-10-30] MEDS: Pravastatin Sodium 40 MG TAB PO SCH (20:50)
--- NOTE | 2017-10-30 20:58 | PDOC.PN ---
- Subjective Encounter Start Date: 10/30/17 Encounter Start Time: 15:50 Patient seen and examined. Feels gen weak. No overnight events - Objective Resuscitation Status: Resuscitation Status FULL:Full Resuscitation MAR Reviewed: Yes Vital Signs & Weight: Vital Signs (12 hours) Temp Pulse Resp BP Pulse Ox Pulse Ox Pulse Ox 10/30/17 20:00 98.9 F 103 H 16 135/88 94 L 10/30/17 18:29 111 H 20 91 L 10/30/17 14:01 84 L 89 L 10/30/17 13:33 110 H 20 94 L 10/30/17 09:37 113 H 20 97 Pulse Ox 10/30/17 20:00 10/30/17 18:29 10/30/17 14:01 88 L 10/30/17 13:33 10/30/17 09:37 Weight Weight 205 lb 12.8 oz I&O: 10/29/17 10/30/17 10/31/17 06:59 06:59 06:59 Intake Total 1200 1120 520 Balance 1200 1120 520 Result Diagrams: 10/30/17 04:21 10/30/17 04:21 Phys Exam - Physical Examination Constitutional: NAD (ill appearing) Respiratory: no rales, wheezing present Scat rhonchi Cardiovascular: RRR, no rub Gastrointestinal: soft, non-tender, positive bowel sounds Neurological: moves all 4 limbs Dx/Plan - Plan continue antibiotics, respiratory therapy, DVT proph w/lovenox, DVT proph w/SCDs IMPRESSION: 1. Acute hypoxic/hypercapnic respiratory failure secondary to chronic obstructive pulmonary disease exacerbation. ([place]/HMP virus +) 2. Chronic respiratory failure on p.r.n. home oxygen. 3. Obesity with a BMI at 36.6 4. Hypertension. 5. Hyperlipidemia. 6. Former smoker/CKD 2/Hypothyroidism/Other issues per H&P PLAN: * Resp Viral panel reviewed * Await Echo * Cont Atbx/Nebs/Steroids * Cont other meds as below * DC to SNF once cleared by Pulmonary/Echo results * Pulmonary following * AM labs Review of Systems - Review of Systems Respiratory: Cough, Dry, SOB with Excertion Cardiovascular: negative: chest pain, palpitations, orthopnea, paroxysmal nocturnal dyspnea, edema, light headedness, other Gastrointestinal: negative: Nausea, Vomiting, Abdominal Pain, Diarrhea, Constipation, Melena, Hematochezia, Other - Medications/Allergies Allergies/Adverse Reactions: Allergies Allergy/AdvReac Type Severity Reaction Status Date / Time Penicillins Allergy Verified 09/26/17 00:37 Medications: Current Medications Acetaminophen (Tylenol) 650 mg PO Q4H PRN PRN Reason: Headache/Fever or Pain Last Admin: 10/30/17 15:33 Dose: 650 mg Acetaminophen (Tylenol) 650 mg [place] Q4H PRN PRN Reason: Headache/Fever or Pain Albuterol/Ipratropium (Duoneb) 3 ml NEB [id number] [facility] Last Admin: 10/30/17 18:29 Dose: 3 ml Bisacodyl (Dulcolax) 10 mg PO DAILYPRN PRN PRN Reason: Constipation Enoxaparin Sodium (Lovenox) 40 mg SC 0900 [facility] Last Admin: 10/30/17 09:15 Dose: 40 mg Guaifenesin (Mucinex) 600 mg PO Q12H [facility] Last Admin: 10/30/17 20:50 Dose: 600 mg Levofloxacin (Levaquin) 750 mg PO 0600 [facility] Stop: 10/31/17 06:01 Last Admin: 10/30/17 05:58 Dose: 750 mg Levothyroxine Sodium (Synthroid) 100 mcg PO 0600 [facility] Last Admin: 10/30/17 05:58 Dose: 100 mcg Mometasone Furoate/Formoterol Fumar (Dulera 200 Mcg/5 Mcg Inhaler) 2 puff INH BID-RT [facility] Last Admin: 10/30/17 18:29 Dose: 2 puff Pravastatin Sodium (Pravachol) 40 mg PO QPM [facility] Last Admin: 10/30/17 20:50 Dose: 40 mg Prednisone (Prednisone) 40 mg PO QAM-[facility] Stop: 10/31/17 08:01 Last Admin: 10/30/17 09:14 Dose: 40 mg Saccharomyces Boulardii (Florastor) 250 mg PO DAILY [facility] Last Admin: 10/30/17 09:14 Dose: 250 mg Sodium Chloride (Flush - Normal Saline) 10 ml IVF Q12HR [facility] Last Admin: 10/30/17 20:51 Dose: 10 ml Sodium Chloride (Flush - Normal Saline) 10 ml IVF PRN PRN PRN Reason: Saline Flush Sterile Water (Water For Injection) 10 ml FS DAILY [facility] Last Admin: 10/30/17 09:18 Dose: Not Given
[2017-10-31 04:03] LABS: #Eosinphils 0.3 thou/uL (0.0-0.7); #Monocytes 0.8 thou/uL (0.11-0.59); #Neutrophils 7.5 thou/uL (1.40-6.50); %Basophils 0.2 % (0.0-1.0); %Eosinophils 2.5 % (0.0-10.0); %Lymphocytes 25.8 % (21.0-51.0); %Monocytes 6.6 % (0.0-10.0); %Neutrophils 64.9 % (42.0-75.0); Hemoglobin 12.1 g/dL (12.0-16.0); Mean Corpuscular HGB CONC 31.9 g/dL (32.0-36.0); Mean Corpuscular Hemoglobin 29.3 pg (27.0-31.0); Mean Corpuscular Volume 91.8 fl (81.0-99.0); Mean Platelet Volume 6.8 fL (7.4-10.4); Platelet Count 260 thou/uL (130-400); RBC Distribution Width 14.5 % (11.5-14.5); Red Blood Cell (RBC) Count 4.13 mill/uL (4.20-5.40); White Blood Cell (WBC) Count 11.5 thou/uL (4.8-10.8)
[2017-10-31 04:19] LABS: BUN (Urea Nitrogen) 13 mg/dL (9.8-20.1); Calc. Creatinine Clearance 128 mL/min (70-130); Calcium 8.3 mg/dL (7.8-10.44); Estimated GFR-MDRD Greater than 90; Glucose 100 mg/dL (80-115); Magnesium 2.3 mg/dL (1.6-2.6)
[2017-10-31 04:28] LABS: Anion Gap 14 mmol/L (10-20); Carbon Dioxide 35 mmol/L (23-31); Chloride 98 mmol/L (98-107); Potassium 3.8 mmol/L (3.5-5.1); Sodium 143 mmol/L (136-145)
[2017-10-31] MEDS: Levothyroxine Sodium 100 MCG TAB PO SCH (05:42)
[2017-10-31] MEDS: Mometasone/Formoterol 120 PUFF INHALER INH SCH (06:44)
[2017-10-31] MEDS: predniSONE 20 MG TAB PO SCH (08:12)
[2017-10-31] MEDS: Aspirin 81 mg Enteric Coated Tablet PO SCH (08:13)
[2017-10-31] MEDS: guaiFENesin ER 600 MG TAB PO SCH ×2 (08:13→19:36)
[2017-10-31] MEDS: Saccharomyces boulardii 250 MG CAP PO SCH (08:13)
[2017-10-31] MEDS: Enoxaparin Sodium 40 MG/0.4 ML SYRINGE SC SCH (08:19)
[2017-10-31] MEDS: Sterile Water 10 ML VIAL FS SCH (08:20)
--- NOTE | 2017-10-31 15:09 | PRG ---
DATE OF SERVICE: 10/31/2017 SERVICE: Pulmonary Medicine. INTERVAL HISTORY: The patient is doing quite well from a respiratory standpoint. Her strength is st arting to come back to her. She is having less difficulty with getting around. Whenever she does a little bit of activity, she is not desaturating as deeply. She also recovers much more promptly. Sherine vazquez is still coughing, but does not feel like she needs to bring up any sputum any longer. Overall, sherine vazquez is really happy with the progress that she has made. PHYSICAL EXAMINATION: VITAL SIGNS: Afebrile, pulse 98, blood pressure 147/74, respirations 18, saturation 90% on 2 liters nasal cannula. GENERAL: The patient is awake, alert, no apparent distress. LUNGS: Improving air entry. It is still reduced. There is a prolonged expiratory phase and polypho amena wheezing, but I do not hear the rhonchi today. HEART: Normal rate, regular. ABDOMEN: Soft, nontender, nondistended. Bowel sounds are positive. MUSCULOSKELETAL: No cyanosis or clubbing. There is no pitting in the bilateral lower extremities. NEUROLOGIC: Grossly nonfocal. LABORATORY DATA: WBC 11.5, hemoglobin 12.1, platelets 260,000. Neutrophil count is normal. Basic m etabolic profile was essentially unremarkable except for bicarbonate of 35. Creatinine 0.62, magnesi um 3.2. IMAGING: Echocardiogram demonstrates normal ejection fraction. There is some diastolic dysfunction present. ASSESSMENT: 1. Acute on chronic hypoxic and hypercapnic respiratory failure. 2. Chronic obstructive pulmonary disease with acute exacerbation. 3. Rhinovirus and human metapneumovirus. 4. Chronic diastolic heart failure. PLAN: From my perspective, the patient is stable for transition out of the hospital. Antibiotics an d steroids can be discontinued after a total duration of 5 days. She will need to regain her strengt h. I would like to see her in clinic in 2-4 weeks. At that time, we can consider putting her on a n oninvasive mechanical ventilator for home use. I will continue to follow while she remains in house, but hopefully, she will be ready for discharge on Thursday.
--- NOTE | 2017-10-31 15:10 | PDOC.PN ---
- Subjective Encounter Start Date: 10/31/17 Encounter Start Time: 15:08 Patient seen and examined, states she still feels a bit SOB but better, no other issues or complaints. - Objective Resuscitation Status: Resuscitation Status FULL:Full Resuscitation Vital Signs & Weight: Vital Signs (12 hours) Temp Pulse Resp BP Pulse Ox 10/31/17 13:41 99 18 92 L 10/31/17 12:42 98.4 F 98 18 147/74 H 90 L 10/31/17 10:06 103 H 18 93 L 10/31/17 08:00 98.4 F 105 H 18 159/74 H 10/31/17 06:45 97 16 94 L 10/31/17 06:44 97 18 94 L 10/31/17 05:55 98.5 F 100 18 114/67 Weight Weight 205 lb 12.8 oz I&O: 10/30/17 10/31/17 11/01/17 06:59 06:59 06:59 Intake Total 1120 1070 Balance 1120 1070 Result Diagrams: 10/31/17 03:39 10/31/17 03:39 Phys Exam - Physical Examination Constitutional: NAD HEENT: PERRLA, moist MMs, sclera anicteric Neck: no nodes, no JVD, supple mild wheezing present, no respiratory distress Cardiovascular: RRR, no significant murmur, no rub Gastrointestinal: soft, non-tender, no distention Musculoskeletal: pulses present, edema present (trace) Dx/Plan (1) Acute on chronic respiratory failure with hypoxia and hypercapnia Code(s): J96.21 - ACUTE AND CHRONIC RESPIRATORY FAILURE WITH HYPOXIA; J96.22 - ACUTE AND CHRONIC RESPIRATORY FAILURE WITH HYPERCAPNIA Status: Acute (2) COPD exacerbation Code(s): J44.1 - CHRONIC OBSTRUCTIVE PULMONARY DISEASE W (ACUTE) EXACERBATION Status: Acute (3) PNA (pneumonia) Code(s): J18.9 - PNEUMONIA, UNSPECIFIED ORGANISM Status: Acute (4) Hypertension Code(s): I10 - ESSENTIAL (PRIMARY) HYPERTENSION Status: Chronic Qualifiers: Hypertension type: essential hypertension Qualified Code(s): I10 - Essential (primary) hypertension (5) Hypothyroid Code(s): E03.9 - HYPOTHYROIDISM, UNSPECIFIED Status: Chronic Qualifiers: Hypothyroidism type: unspecified Qualified Code(s): E03.9 - Hypothyroidism , unspecified - Plan * Continue current plan of care for now * DC plans in AM if patient feeling well and not wheezing * case and plan d/w patient at length, she understands and agrees with this plan
[2017-10-31] MEDS: Acetaminophen 325 MG TAB PO PRN ×2 (16:30→20:11)
[2017-10-31] MEDS: Pravastatin Sodium 40 MG TAB PO SCH (19:36)
[2017-11-01] MEDS: Mometasone/Formoterol 120 PUFF INHALER INH SCH ×3 (02:11→19:01)
[2017-11-01] MEDS: Guaifenesin DM 100-10/5 ML UDCUP PO PRN ×3 (05:29→18:11)
[2017-11-01] MEDS: Levothyroxine Sodium 100 MCG TAB PO SCH (05:30)
[2017-11-01] MEDS: Sterile Water 10 ML VIAL FS SCH (07:45)
[2017-11-01] MEDS: Enoxaparin Sodium 40 MG/0.4 ML SYRINGE SC SCH (07:47)
[2017-11-01] MEDS: Aspirin 81 mg Enteric Coated Tablet PO SCH (07:48)
[2017-11-01] MEDS: Saccharomyces boulardii 250 MG CAP PO SCH (07:48)
[2017-11-01] MEDS: guaiFENesin ER 600 MG TAB PO SCH ×2 (07:48→20:27)
[2017-11-01] MEDS: Acetaminophen 325 MG TAB PO PRN ×2 (09:54→20:27)
--- NOTE | 2017-11-01 11:03 | PDOC.PN ---
- Subjective Encounter Start Date: 11/01/17 Encounter Start Time: 11:01 Patient seen and examined, states her SOb is the same with no major improvement. Son at bedside, states that his mother has been having increasing lower extremity edema B/L for the past few weeks and was told she may have a component of heart failure. No other issues overnight, all questions answere. - Objective Resuscitation Status: Resuscitation Status FULL:Full Resuscitation Vital Signs & Weight: Vital Signs (12 hours) Temp Pulse Resp BP Pulse Ox 11/01/17 10:27 99 18 95 11/01/17 08:00 98.7 F 110 H 20 127/63 93 L 11/01/17 07:44 93 18 91 L 11/01/17 07:41 93 16 91 L 11/01/17 04:00 98.7 F 100 18 137/70 91 L 11/01/17 02:15 101 H 16 11/01/17 00:00 98.8 F 101 H 18 145/67 H 91 L Weight Weight 205 lb 12.8 oz I&O: 10/31/17 11/01/17 11/02/17 06:59 06:59 06:59 Intake Total 1070 850 360 Balance 1070 850 360 Result Diagrams: 10/31/17 03:39 10/31/17 03:39 Phys Exam - Physical Examination Constitutional: NAD HEENT: PERRLA, moist MMs, sclera anicteric Neck: no nodes, no JVD, supple no respiratory disress inspiratory crackles appreciated B/L lower lobes Cardiovascular: RRR, no rub 2/6 ME[place]HAN Gastrointestinal: soft, non-tender, no distention Musculoskeletal: no edema, pulses present Neurological: non-focal, normal sensation Dx/Plan (1) Acute on chronic respiratory failure with hypoxia and hypercapnia Code(s): J96.21 - ACUTE AND CHRONIC RESPIRATORY FAILURE WITH HYPOXIA; J96.22 - ACUTE AND CHRONIC RESPIRATORY FAILURE WITH HYPERCAPNIA Status: Acute (2) COPD exacerbation Code(s): J44.1 - CHRONIC OBSTRUCTIVE PULMONARY DISEASE W (ACUTE) EXACERBATION Status: Acute (3) PNA (pneumonia) Code(s): J18.9 - PNEUMONIA, UNSPECIFIED ORGANISM Status: Acute (4) Hypertension Code(s): I10 - ESSENTIAL (PRIMARY) HYPERTENSION Status: Chronic Qualifiers: Hypertension type: essential hypertension Qualified Code(s): I10 - Essential (primary) hypertension (5) Hypothyroid Code(s): E03.9 - HYPOTHYROIDISM, UNSPECIFIED Status: Chronic Qualifiers: Hypothyroidism type: unspecified Qualified Code(s): E03.9 - Hypothyroidism , unspecified - Plan * will add lasix 40mg po dailyf or now * echo showed diastolic dysfunction with intact EF, patient may have some underlying CHF decompensation diastolic * will start lasix and monitor for now, pulmonary also following, cxr in AM * DC plans in 24-48hrs if patient feeling well, will need out patient PFT at a later date * case and plan d/w patient and son at length, they understand and agree with this plan
[2017-11-01] MEDS: Pravastatin Sodium 40 MG TAB PO SCH (20:27)
[2017-11-02] MEDS: Mometasone/Formoterol 120 PUFF INHALER INH SCH ×2 (06:18→18:41)
[2017-11-02] MEDS: Acetaminophen 325 MG TAB PO PRN ×2 (06:35→17:56)
[2017-11-02] MEDS: Levothyroxine Sodium 100 MCG TAB PO SCH (06:35)
[2017-11-02] MEDS: Guaifenesin DM 100-10/5 ML UDCUP PO PRN (06:35)
--- NOTE | 2017-11-02 07:39 | RAD ---
AP VIEW OF THE CHEST: INDICATION: Cough and shortness of breath. COMPARISON: Prior exam dated 10/23/17. FINDINGS: Chronic lung changes and mild cardiomegaly are stable. No airspace consolidation, pleural effusion, or pneumothorax is evident. No acute osseous abnormality is evident. IMPRESSION: No acute cardiopulmonary abnormality. POS: [facility]
[2017-11-02] MEDS: guaiFENesin ER 600 MG TAB PO SCH ×2 (09:10→20:40)
[2017-11-02] MEDS: Saccharomyces boulardii 250 MG CAP PO SCH (09:10)
[2017-11-02] MEDS: Enoxaparin Sodium 40 MG/0.4 ML SYRINGE SC SCH (09:10)
[2017-11-02] MEDS: Aspirin 81 mg Enteric Coated Tablet PO SCH (09:11)
[2017-11-02] MEDS: Furosemide 40 MG TAB PO SCH (09:11)
[2017-11-02] MEDS: Sterile Water 10 ML VIAL FS SCH (09:12)
--- NOTE | 2017-11-02 11:25 | PDOC.EVN ---
Event Note - Event Note Event Note: DC SUMMARY #[id number]
--- NOTE | 2017-11-02 14:00 | DIS ---
DATE OF ADMISSION: 10/23/2017 DATE OF DISCHARGE: 11/02/2017 ADMITTING DIAGNOSES: Shortness of breath, chronic obstructive pulmonary disease exacerbation, conges tive heart failure, diastolic, hypertension, obesity, and hypothyroidism. DISCHARGE DIAGNOSES: 1. Chronic obstructive pulmonary disease exacerbation, resolved. 2. Congestive heart failure decompensation, stable. 3. Hypertension, stable. 4. Hypothyroidism, stable. 5. Shortness of breath, resolved. Baseline chronic obstructive pulmonary disease. HOSPITAL COURSE: Patient is a 67-year-old female who was admitted to Internal Medicine team complain ing of air hunger, was started on BiPAP, followed very closely by Pulmonary and was started on steroi ds and antibiotics. Patient after 5-6 days had tremendous improvement of her shortness of breath; ho wever inspiratory crackles were noted. The patient was started on diuretics and an echocardiogram wa s performed which revealed an intact ejection fraction suggestive of an intact systolic function; how ever, diastolic dysfunction was noted. Diuretic response was positive. The patient stated that 2 da ys post-diuresis initiation, she did have improvement in her shortness of breath. A chest x-ray was performed at the time of discharge which showed no acute cardiopulmonary process or abnormalities. T he patient was able to tolerate room air with O2 saturations at 94%, stable blood pressure and vital signs. At point in time of discharge, the patient denied any nausea, vomiting, diarrhea, constipatio n, chest pain, fevers, or shortness of breath. The patient was given a prescription for Lasix 40, Z- CLARISSA as well as a Medrol Dosepak. Patient was to follow up with her tie inspector and pulmonary doctor as well as Internal Medicine for further management and care within 2 weeks. Case and plan discusse d with the patient at length. She understands and agrees with this plan. DISPOSITION: Home. Follow up with PCP, Cardiology and Pulmonary in 2 weeks. DISCHARGE MEDICATIONS: Resume home medications. Prescription given to her Lasix 40 p.o. daily, Z-PA K and Medrol Dosepak. DIET: Low fat, low calorie, high fiber diet. ACTIVITY: As tolerated with assistance as needed. CONDITION: Stable. PROGNOSIS: Good.
--- NOTE | 2017-11-02 14:24 | PRG ---
DATE OF SERVICE: 11/02/2017 SERVICE: Pulmonary Medicine. INTERVAL HISTORY: The patient is doing really well from a respiratory standpoint. She denies any cu rrent chest pain, nausea, vomiting, fevers or chills. There has been no interval change to her condi tion other than she is breathing much more comfortably. She is more mobile. Her strength is improvi ng very rapidly. Overall, she feels ready and safe to leave the hospital today. PHYSICAL EXAMINATION: VITAL SIGNS: Afebrile, pulse 61, blood pressure 125/77, respirations 18, saturation 90% on 2 liters nasal cannula. GENERAL: The patient is awake, alert, no apparent distress. LUNGS: Much improved air entry. There is less rhonchi. No crackling is appreciated. There is a pr olonged expiratory phase with minimal wheezing. HEART: Normal rate, regular. ABDOMEN: Soft, nontender, nondistended. Bowel sounds are positive. MUSCULOSKELETAL: No cyanosis or clubbing. No pitting in the bilateral lower extremities. NEUROLOGIC: Grossly nonfocal. IMAGING: Chest x-ray demonstrates no acute cardiopulmonary abnormality. ASSESSMENT: 1. Acute on chronic hypoxic and hypercapnic respiratory failure. 2. Chronic obstructive pulmonary disease with acute exacerbation. 3. Rhinovirus and human metapneumovirus. 4. Chronic diastolic heart failure. PLAN: The patient is stable for transition out of the hospital. Antibiotics and steroids will be di scontinued after a total duration of 5 days. Once she regains her strength, I would like her to foll ow up with me in clinic in 2-4 weeks. At that point, we will consider setting up for noninvasive luke tilation for home use. I will continue to follow while she remains in house.
[2017-11-02] MEDS: Pravastatin Sodium 40 MG TAB PO SCH (20:40)
[2017-11-03] MEDS: Levothyroxine Sodium 100 MCG TAB PO SCH (05:39)
--- NOTE | 2017-11-03 06:07 | PRG ---
DATE OF SERVICE: 11/01/2017 SERVICE: Pulmonary Medicine. INTERVAL HISTORY: The patient is doing fine from cardiovascular and respiratory standpoint. She act ually feels like her strength is much improved. She is able to sit on the side of the bed without he lp. She can actually mobilize around her room just a touch. She is very happy with the progress baldemar t she has made. Her shortness of breath and dyspnea with exertion is improving dramatically. OBJECTIVE: VITAL SIGNS: Afebrile, pulse 99, blood pressure 127/63, respirations 18, saturation 95% on 2 L nasal cannula. GENERAL: Patient is awake, alert, in no apparent distress. LUNGS: Much improved air entry. There is still rhonchi present. Expiratory wheezing is also there. No crackles are appreciated. HEART: Normal rate, regular. ABDOMEN: Soft, nontender, nondistended. Bowel sounds are positive. MUSCULOSKELETAL: No cyanosis or clubbing. No pitting in the bilateral lower extremities. NEUROLOGIC: Grossly nonfocal. ASSESSMENT: 1. Acute on chronic hypoxic and hypercapnic respiratory failure. 2. Chronic obstructive pulmonary disease with acute exacerbation. 3. Rhino virus and human metapneumovirus. 4. Chronic diastolic heart failure. PLAN: The patient is stable for transition out of the hospital. She will go back to her swing bed f acility. Antibiotics and steroids can be discontinued after total duration of 5 days. I would like further follow up with me in clinic in 2 to 4 weeks. At that point, we will consider her for noninva sive mechanical ventilator for home use. While she remains in-house, Pulmonary Critical Care will co arielleue to follow.
[2017-11-03] MEDS: Mometasone/Formoterol 120 PUFF INHALER INH SCH (06:16)
[2017-11-03 07:37] VITALS: TEMP 97.5
[2017-11-03] MEDS: Saccharomyces boulardii 250 MG CAP PO SCH (08:24)
[2017-11-03] MEDS: Furosemide 40 MG TAB PO SCH (08:24)
[2017-11-03] MEDS: guaiFENesin ER 600 MG TAB PO SCH (08:25)
[2017-11-03] MEDS: Enoxaparin Sodium 40 MG/0.4 ML SYRINGE SC SCH (08:25)
[2017-11-03] MEDS: Aspirin 81 mg Enteric Coated Tablet PO SCH (08:25)
[2017-11-03] MEDS: Sterile Water 10 ML VIAL FS SCH (08:26)
[2017-11-03] MEDS: Acetaminophen 325 MG TAB PO PRN (08:30)
[2017-11-03 14:37] VITALS: BP 134/85
--- NOTE | 2017-11-03 16:17 | PRG ---
DATE OF SERVICE: 11/03/2017 SERVICE: Pulmonary Medicine. INTERVAL HISTORY: The patient is doing fine from cardiovascular and respiratory standpoint. Her str ength is improving. Her breathlessness is much improved. She denies chest pain, nausea, vomiting, f emile or chills. Her cough is back to baseline. PHYSICAL EXAMINATION: VITAL SIGNS: Afebrile, pulse 100, blood pressure 134/85, respirations 18, saturation 94% on 2 liters nasal cannula. GENERAL: The patient is awake, alert, no apparent distress. LUNGS: Decent air entry bilaterally. There is a prolonged expiratory phase. Minimal wheezing is pr esent, but there are no rhonchi or crackles today. HEART: Normal rate and regular. ABDOMEN: Soft, nontender, nondistended. Bowel sounds are positive. MUSCULOSKELETAL: No cyanosis or clubbing. There is no pitting in the bilateral lower extremities. NEUROLOGIC: Grossly nonfocal. ASSESSMENT: 1. Acute on chronic hypoxic and hypercapnic respiratory failure. 2. Chronic obstructive pulmonary disease with acute exacerbation. 3. Rhinovirus and human metapneumovirus. 4. Chronic diastolic heart failure. DISCUSSION AND PLAN: 1. The patient is stable for transition out of hospital. I would like for her to follow up with me in 2-4 weeks in the outpatient setting to consider her for noninvasive ventilation home use. 2. Pulmonary or Critical Care will continue to follow if she remains in hospital, but I believe she is stable for transition home from a purely respiratory perspective.
== END 2017-11-03 16:02 | DRG 189 ==
LOC: ERS 18:14 → IMCU/EMU 18:32 → T4-A 10-27 18:14
PROVIDERS: ADMIT Family Medicine; ATTEND Family Medicine
DX: J96.22 Acute and chronic respiratory failure with hypercapnia (principal); I50.33 Acute on chronic diastolic (congestive) heart failure; I13.0 Hypertensive heart and chronic kidney disease with heart failure and stage 1 through stage 4 chronic kidney disease, or unspecified chronic kidney disease; J44.1 Chronic obstructive pulmonary disease with (acute) exacerbation; E03.9 Hypothyroidism, unspecified; E78.5 Hyperlipidemia, unspecified; E66.9 Obesity, unspecified; M19.90 Unspecified osteoarthritis, unspecified site; N18.2 Chronic kidney disease, stage 2 (mild); Z68.36 Body mass index [BMI] 36.0-36.9, adult; J96.21 Acute and chronic respiratory failure with hypoxia; Z88.0 Allergy status to penicillin; Z79.82 Long term (current) use of aspirin; Z79.51 Long term (current) use of inhaled steroids; Z79.899 Other long term (current) drug therapy; Z87.891 Personal history of nicotine dependence
CPT/HCPCS: 36415; 71045; 80048; 80053; 80069; 82805; 83735; 85014; 85018; 85025; 85049; 87633; 87798; 93306; 94640; 94660; 94664; A4216; G8978-GP-CL; G8979-GP-CI; G8987-GO-CL; G8988-GO-CJ; J1120; J1650; J1956; J2920; J7050; J7506; J7620

== ENCOUNTER 2022-01-07 10:30 | Outpatient (CLI) | payer MEDICARE | END 2022-01-07 10:31 | disposition home or self-care (01) | LOC: RAD 10:30 | PROVIDERS: ATTEND Internal Medicine | DX: R06.09 Other forms of dyspnea (principal); I51.7 Cardiomegaly | CPT/HCPCS: 71046 ==

== ENCOUNTER 2024-07-25 23:20 | Inpatient (IN) | payer MEDICARE ==
[2024-07-26] MEDS ORDERED: Ondansetron PF 4 MG/2 ML Vial IVP PRN (01:36)
[2024-07-26] MEDS ORDERED: Acetaminophen 325 MG TAB PO PRN (01:36)
[2024-07-26] MEDS ORDERED: Ondansetron ODT 4 MG TAB PO PRN (01:36)
[2024-07-26] MEDS ORDERED: Calcium Carbonate 500 MG ChewTAB PO PRN (01:36)
[2024-07-26] MEDS ORDERED: Acetaminophen 650 MG Suppository PR PRN (01:36)
[2024-07-26] MEDS ORDERED: Ipratropium/Albuterol 3 ML NEB NEB PRN (01:37)
[2024-07-26 01:39] VITALS: BMI 35.0
[2024-07-26 02:13] LABS: #Basophils Less than 0.03 10x3/uL (0.0-0.2); #Eosinophils Less than 0.03 10x3/uL (0.0-0.7); %Basophils 0.3 % (0.0-1.0); %Eosinophils 0.1 % (0.0-10.0); %Lymphocytes 4.4 % (21.0-51.0); %Monocytes 0.8 % (0.0-10.0); %Neutrophils 93.3 % (42.0-75.0); Hematocrit 33.1 % (36.0-47.0); Hemoglobin 9.5 g/dL (12.0-16.0); Mean Corpuscular HGB CONC 28.7 g/dL (32.0-36.0); Mean Corpuscular Hemoglobin 28.5 pg (27.0-31.0); Mean Corpuscular Volume 99.4 fL (78.0-98.0); Mean Platelet Volume 9.1 fL (7.4-10.4); Platelet Count 241 10x3/uL (130-400); RBC Distribution Width 13.7 % (11.5-14.5); Red Blood Cell (RBC) Count 3.33 mill/uL (4.20-5.40)
[2024-07-26 02:26] LABS: Anion Gap 13 mmol/L (10-20); BUN (Urea Nitrogen) 21 mg/dL (9.8-20.1); Calc. Creatinine Clearance 106 mL/min (70-130); Calcium 8.6 mg/dL (7.8-10.44); Carbon Dioxide 31 mmol/L (23-31); Chloride 106 mmol/L (98-107); Estimated GFR 91; Glucose 202 mg/dL (83-110); Potassium 5.6 mmol/L (3.5-5.1); Sodium 144 mmol/L (136-145)
[2024-07-26] MEDS: LOKELMA 10 GM PACKET PO SCH (05:15)
[2024-07-26 08:13] LABS: #Basophils Less than 0.03 10x3/uL (0.0-0.2); #Eosinophils Less than 0.03 10x3/uL (0.0-0.7); %Basophils 0.2 % (0.0-1.0); %Lymphocytes 11.4 % (21.0-51.0); %Monocytes 2.9 % (0.0-10.0); %Neutrophils 84.3 % (42.0-75.0); Hematocrit 32.1 % (36.0-47.0); Hemoglobin 9.1 g/dL (12.0-16.0); Mean Corpuscular HGB CONC 28.3 g/dL (32.0-36.0); Mean Corpuscular Hemoglobin 28.5 pg (27.0-31.0); Mean Corpuscular Volume 100.6 fL (78.0-98.0); Mean Platelet Volume 8.9 fL (7.4-10.4); Platelet Count 221 10x3/uL (130-400); RBC Distribution Width 13.6 % (11.5-14.5); Red Blood Cell (RBC) Count 3.19 mill/uL (4.20-5.40)
[2024-07-26 08:14] LABS: Anion Gap 9 mmol/L (10-20); BUN (Urea Nitrogen) 18 mg/dL (9.8-20.1); Calc. Creatinine Clearance 115 mL/min (70-130); Calcium 8.3 mg/dL (7.8-10.44); Carbon Dioxide 37 mmol/L (23-31); Chloride 105 mmol/L (98-107); Estimated GFR 93; Glucose 140 mg/dL (83-110); Potassium 5.4 mmol/L (3.5-5.1); Sodium 146 mmol/L (136-145)
[2024-07-26 08:47] LABS: Hypochromia MODERATE=16-30 cells HPF (0-5); Platelet Adequacy Comment Platelets Normal; Polychromasia SLIGHT = 2-3 cells HPF (0-2)
[2024-07-26] MEDS: Heparin 5,000 UNITS/ML VIAL SC SCH (09:04)
[2024-07-26] MEDS: cefTRIAXone\\ROCEPHIN 1 GM in Sodium Chloride 0.9% 100 ML IVPB SCH (09:04)
[2024-07-26] MEDS: Famotidine 20 MG TAB PO SCH ×2 (09:04→21:06)
[2024-07-26] MEDS: methylPREDNISolone Sod Succ 40 MG VIAL IVP SCH (09:04)
[2024-07-26] MEDS: Azithromycin 500 MG in Sodium Chloride 0.9% 250 ML 250 ML IVPB SCH (09:04)
[2024-07-26] MEDS: Famotidine/PF 20 mg/2ml Vial SLOW IVP SCH ×2 (09:05→21:06)
[2024-07-26] MEDS: Ipratropium/Albuterol 3 ML NEB NEB SCH (10:34)
[2024-07-26 12:55] VITALS: BMI 35.0
[2024-07-27 05:05] LABS: Hematocrit 32.6 % (36.0-47.0); Hemoglobin 9.2 g/dL (12.0-16.0); Mean Corpuscular HGB CONC 28.2 g/dL (32.0-36.0); Mean Corpuscular Hemoglobin 27.7 pg (27.0-31.0); Mean Corpuscular Volume 98.2 fL (78.0-98.0); Mean Platelet Volume 9.3 fL (7.4-10.4); Platelet Count 229 10x3/uL (130-400); RBC Distribution Width 13.8 % (11.5-14.5); Red Blood Cell (RBC) Count 3.32 mill/uL (4.20-5.40)
[2024-07-27 05:11] LABS: Anion Gap 10 mmol/L (10-20); BUN (Urea Nitrogen) 22 mg/dL (9.8-20.1); Calc. Creatinine Clearance 108 mL/min (70-130); Calcium 8.6 mg/dL (7.8-10.44); Carbon Dioxide 36 mmol/L (23-31); Chloride 103 mmol/L (98-107); Estimated GFR 92; Glucose 145 mg/dL (83-110); Magnesium 1.7 mg/dL (1.6-2.6); Potassium 4.5 mmol/L (3.5-5.1); Sodium 144 mmol/L (136-145)
[2024-07-27 05:45] LABS: Band 2 % (5-11); Hypochromia SLIGHT = 6-15 cells (100X) (0-5/hpf); Lymphocytes 16 % (21-51); Monocytes 1 % (0-10); Neutrophil 81 % (42-75); Plasma Cells 0 % (0-0); Platelet Adequacy Comment Appears Adequate; Total Cell Count 100
[2024-07-27] MEDS ORDERED: Electrolyte Replacement Protocol 1 EACH FS SCH (09:05)
[2024-07-27] MEDS: Metoprolol Tartrate 25 MG TAB PO SCH (09:35)
[2024-07-27] MEDS ORDERED: guaiFENesin ER 600 MG TAB PO PRN (11:07)
[2024-07-27] MEDS ORDERED: Polyethylene Glycol 3350 17 GM Packet PO PRN (11:11)
[2024-07-27] MEDS: Magnesium 2 GM/50 ML(in water) 2 GM in Premix 1 BAG IVPB SCH (12:00)
[2024-07-27] MEDS: dilTIAZem CD 180 MG CAP PO SCH ×2 (12:41→12:48)
[2024-07-27] MEDS ORDERED: Ipratropium Bromide 2.5 ml Neb NEB SCH (13:00)
[2024-07-27] MEDS: Acetaminophen 500 MG TAB PO SCH (15:55)
[2024-07-27] MEDS: Mometasone 200 MCG/Formoterol 5 MCG 120 PUFF INHALER INH SCH (18:59)
[2024-07-27] MEDS: Senokot S 8.6-50 MG TAB PO SCH (20:14)
[2024-07-27] MEDS: Atorvastatin Calcium 20 MG TAB PO SCH (20:14)
[2024-07-27] MEDS ORDERED: Metoprolol Tartrate 25 MG TAB PO SCH (21:00)
[2024-07-28 04:56] LABS: #Basophils Less than 0.03 10x3/uL (0.0-0.2); #Eosinophils Less than 0.03 10x3/uL (0.0-0.7); %Neutrophils 83.7 % (42.0-75.0); Hematocrit 34.1 % (36.0-47.0); Hemoglobin 10.1 g/dL (12.0-16.0); Mean Corpuscular HGB CONC 29.6 g/dL (32.0-36.0); Mean Corpuscular Hemoglobin 28.7 pg (27.0-31.0); Mean Corpuscular Volume 96.9 fL (78.0-98.0); Mean Platelet Volume 9.3 fL (7.4-10.4); Platelet Count 214 10x3/uL (130-400); RBC Distribution Width 13.9 % (11.5-14.5); Red Blood Cell (RBC) Count 3.52 mill/uL (4.20-5.40)
[2024-07-28 05:19] LABS: Anion Gap 11 mmol/L (10-20); BUN (Urea Nitrogen) 33 mg/dL (9.8-20.1); Calc. Creatinine Clearance 97 mL/min (70-130); Calcium 8.6 mg/dL (7.8-10.44); Carbon Dioxide 38 mmol/L (23-31); Chloride 99 mmol/L (98-107); Estimated GFR 86; Glucose 151 mg/dL (83-110); Magnesium 2.1 mg/dL (1.6-2.6); Sodium 143 mmol/L (136-145)
[2024-07-28] MEDS: Levothyroxine Sodium 100 MCG TAB PO SCH (05:43)
[2024-07-28] MEDS: Ipratropium/Albuterol 3 ML NEB NEB PRN (06:07)
[2024-07-28] MEDS: Potassium Chloride 20 MEQ TAB PO SCH (08:45)
[2024-07-28] MEDS: dilTIAZem CD 300 MG CAP PO SCH (08:45)
[2024-07-28] MEDS: Aspirin 81 mg Enteric Coated Tablet PO SCH (08:45)
[2024-07-28] MEDS: Furosemide 40 MG TAB PO SCH (08:45)
[2024-07-28] MEDS: Multivit, Therapeutic 1 TAB PO SCH (08:45)
[2024-07-28] MEDS ORDERED: Potassium Chloride 10 MEQ TAB PO SCH (09:00)
[2024-07-28] MEDS ORDERED: Metoprolol Succinate XL 25 MG ER.TAB PO SCH (09:00)
[2024-07-28] MEDS ORDERED: dilTIAZem CD 180 MG CAP PO SCH ×2 (09:00)
[2024-07-28] MEDS: Albuterol 2.5 MG (3 mL) NEB NEB PRN (13:25)
[2024-07-28] MEDS: Senokot S 8.6-50 MG TAB PO SCH (20:55)
[2024-07-28] MEDS: Amoxicillin/Potassium Clav 875 MG TAB PO SCH (20:55)
[2024-07-28] MEDS: Cholecalciferol 1,000 UNITS (25 MCG) TAB PO SCH (20:55)
[2024-07-28] MEDS: Saccharomyces boulardii 250 MG CAP PO SCH (20:55)
[2024-07-28] MEDS: Magnesium Oxide 400 MG TAB PO SCH (20:56)
[2024-07-29] MEDS: Azithromycin 250 MG TAB PO SCH (08:25)
[2024-07-29] MEDS: Furosemide 40 MG TAB PO SCH (08:26)
[2024-07-29] MEDS: predniSONE 20 MG TAB PO SCH (08:26)
[2024-07-29] MEDS: Polyethylene Glycol 3350 17 GM Packet PER TUBE SCH (11:18)
[2024-07-30] MEDS: Furosemide 20 MG TAB PO SCH (09:10)
[2024-07-30] MEDS: Polyethylene Glycol 3350 17 GM Packet PO SCH ×2 (11:49→12:11)
[2024-07-30] MEDS: guaiFENesin ER 600 MG TAB PO SCH ×2 (12:11→20:15)
[2024-07-30] MEDS: Bisacodyl 10 MG SUPP PR SCH (20:16)
[2024-07-31 04:56] LABS: #Basophils Less than 0.03 10x3/uL (0.0-0.2); %Basophils 0.1 % (0.0-1.0); %Eosinophils 0.7 % (0.0-10.0); %Lymphocytes 16.5 % (21.0-51.0); %Monocytes 9.8 % (0.0-10.0); %Neutrophils 71.4 % (42.0-75.0); Hematocrit 37.2 % (36.0-47.0); Hemoglobin 10.9 g/dL (12.0-16.0); Mean Corpuscular HGB CONC 29.3 g/dL (32.0-36.0); Mean Corpuscular Hemoglobin 27.9 pg (27.0-31.0); Mean Corpuscular Volume 95.4 fL (78.0-98.0); Mean Platelet Volume 9.7 fL (7.4-10.4); Platelet Count 207 10x3/uL (130-400); RBC Distribution Width 14.2 % (11.5-14.5)
[2024-07-31 05:41] LABS: Anion Gap 9 mmol/L (10-20); BUN (Urea Nitrogen) 27 mg/dL (9.8-20.1); Calc. Creatinine Clearance 97 mL/min (70-130); Calcium 8.6 mg/dL (7.8-10.44); Carbon Dioxide 47 mmol/L (23-31); Chloride 89 mmol/L (98-107); Estimated GFR 85; Glucose 96 mg/dL (83-110); Magnesium 2.1 mg/dL (1.6-2.6); Potassium 4.6 mmol/L (3.5-5.1); Sodium 140 mmol/L (136-145)
[2024-07-31] MEDS: predniSONE 20 MG TAB PO SCH (09:10)
[2024-07-31] MEDS: Polyethylene Glycol 3350 17 GM Packet PO SCH (09:11)
[2024-07-31] MEDS: Artificial Tear Ophth Sol 15 ML BOT EA EYE PRN (11:04)
[2024-08-01] MEDS: AcetaZOLAMIDE 250 MG TAB PO SCH (08:48)
[2024-08-01] MEDS: dilTIAZem CD 240 MG CAP PO SCH (08:49)
[2024-08-01] MEDS: Fluticasone Propionate Nasal Spray 16 gm Bottle NASAL SCH (09:26)
[2024-08-01 11:45] VITALS: TEMP 97.9
[2024-08-01 11:48] VITALS: BP 136/65
[2024-08-01] MEDS ORDERED: Ipratropium/Albuterol 3 ML NEB NEB PRN (12:11)
== END 2024-08-01 14:45 | DRG 189 ==
LOC: OBS 23:20 → 2NO 07-26 04:07 → OBSVTOIN 07-27 14:12
PROVIDERS: ADMIT Student in an Organized Health Care Education/Training Program; ATTEND Internal Medicine
DX: J96.21 Acute and chronic respiratory failure with hypoxia (principal); J44.1 Chronic obstructive pulmonary disease with (acute) exacerbation; I47.10 Supraventricular tachycardia, unspecified; I50.32 Chronic diastolic (congestive) heart failure; E11.9 Type 2 diabetes mellitus without complications; E78.5 Hyperlipidemia, unspecified; E66.01 Morbid (severe) obesity due to excess calories; E83.42 Hypomagnesemia; E87.6 Hypokalemia; I11.0 Hypertensive heart disease with heart failure; Z88.0 Allergy status to penicillin; Z87.891 Personal history of nicotine dependence; Z79.01 Long term (current) use of anticoagulants; Z79.899 Other long term (current) drug therapy; I27.20 Pulmonary hypertension, unspecified; Z79.82 Long term (current) use of aspirin
CPT/HCPCS: 36415; 36416; 80048; 83735; 85025; 87633; 87798; 93005; 93010; 93306; 96372; 96374; 96375; 96376; G0378; J0456; J0696; J1644; J2919; J3475; J7050; J7512; J7611; J7620